=== PATIENT | female | born 1925 | race Caucasian/White ===

== ENCOUNTER 2016-07-19 04:34 | Emergency (ER) | payer MEDICARE, BC ==
[~2016-07-19] VITALS: Ht 154.9 cm; Wt 62.8 kg
[2016-07-19 04:34] VITALS: Ht 154.9 cm; Wt 62.8 kg
[~2016-07-19 04:34] MED LIST: METO-68 PO; TRIA1TAB72 PO; ZOLE5INF IV; [UNRECOGNIZED DRUG - CODE] PO
--- NOTE | 2016-07-19 04:35 | NUR ---
BILAT BP PT BP OBTAINED ON LEFT ARM. STATES SHE IS NOT TO HAVE BP TAKEN ON RIGHT ARM DUE TO PREVIOUS NODE REMOVAL.
--- OUTSIDE RECORDS SUMMARY | 2016-07-19 04:39 | XMS REPORT | Referral Summary ---
Author Author [facility], [facility] Organization [facility] Address Unknown Phone Unavailable Care Team Providers Care Hydraulics Engineer Name Role Phone Augustus Haywood Primary Care Physician [phone] Encounter Date(s): 11/24/14 - 11/24/14 [facility], [address] [place] [address]- Discharge Diagnosis: Hypertension Discharge Diagnosis: Insomnia Discharge Diagnosis: Obstructive sleep apnea, adult Discharge Disposition: 01-Home or Self Care Attending Physician: Paula Haywood DO Admitting Physician: Luz Benjamin APRN Vital Signs Most recent to 1 oldest [Reference Range]: Temperature Tympanic 36.9 degC [36.6-38.1 degC] (11/24/14 9:01 AM) Peripheral Pulse 76 bpm Rate [60-100 bpm] (11/24/14 9:01 AM) Respiratory Rate 16 br/min [14-20 br/min] (11/24/14 9:01 AM) Blood Pressure 150/88 mmHg [90-140/60-90 mmHg] *HI* (11/24/14 9:01 AM) SpO2 96 % (11/24/14 9:01 AM) Problem List Condition Effective Dates Status Health Status Informant Anemia(Confirmed) Active Arthritis(Confirmed) Active Cataracts(Confirmed) Resolved Skin Active Conditions(Confirmed ) Heart Active murmur(Confirmed) Hyperlipidemia(Confi Resolved rmed) Hypertension(Confirm Active ed) IBS(Confirmed) Active Ear Active infection(Confirmed) Insomnia(Confirmed) Active Obstructive sleep Active apnea, adult(Confirmed) Osteopenia(Confirmed Active ) Pneumonia(Confirmed) Resolved Speech Active problem(Confirmed) Tension Resolved headache(Confirmed) Chicken Active pox(Confirmed) Allergies, Adverse Reactions, Alerts Substance Reaction Severity Status clindamycin Active penicillin Unknown Active Medications Caltrate 600 + D 1 tabs, Oral, BID, 0 Refill(s) Start Date: 09/13/14 Status: Ordered Lasix 20 mg oral tablet 20 mg 1 tabs, Oral, Daily, # 90 tabs, 3 Refill(s), Pharmacy: [facility] [id number], 1 tabs Oral Daily Start Date: 11/24/14 Status: Ordered lisinopril 5 mg oral tablet 5 mg 1 tabs, Oral, Daily, # 90 tabs, 3 Refill(s), Pharmacy: [facility] [id number], 1 tabs Oral Daily Start Date: 11/24/14 Status: Ordered lutein Oral, Daily, 0 Refill(s) Start Date: 09/16/13 Status: Ordered Nasonex 50 mcg/inh nasal spray 100 mcg 2 sprays, Nasal, Daily, # 3 Each, 3 Refill(s), Pharmacy: [facility] [id number] Start Date: 08/07/14 Status: Ordered ZyrTEC 10 mg, Oral, Daily, 0 Refill(s) Start Date: 02/06/14 Status: Ordered Results No data available for this section Immunizations Vaccine Date Refusal Reason tetanus/diphth/pertuss (Tdap) adult/adol 12/22/11 influenza virus vaccine, live 11/24/12 influenza virus vaccine, live 12/22/11 pneumococcal 13-valent conjugate vaccine1 08/07/14 pneumococcal 23-polyvalent vaccine 10/18/08 zoster vaccine live 08/24/09 1Result Comment: GIVEN BY Senthil DAVIS RNmachinist general Procedure Date Related Diagnosis Body Site Breast biopsy and related procedures1 1990 Appendectomy2 1972 Hysterectomy3 1973 Tonsillectomy4 1933 Cataract extraction [id number] [id number] Social History Social History Type Response Smoking Status Former smoker; Type: Cigarettes; Number of years: 41 1Quit in 1961 Assessment and Plan Extracted from: Title: Ambulatory Patient Education Author: Paula Haywood DO Date: Behavioral Health Insomnia Insomnia is frequent trouble falling and/or staying asleep. Insomnia can be a jail problem or a short term problem. Both are common. Insomnia can be a short term problem when the wakefulness is related to a certain stress or worry. half-way insomnia is often related to ongoing stress during waking hours and/or poor sleeping habits. Overtime, sleep deprivation itself can make the problem worse. Every little thing feels more severe because you are overtired and your ability to cope is decreased. CAUSES Stress, anxiety, and depression. Poor sleeping habits. Distractions such as TV in the bedroom. Naps close to bedtime. Engaging in emotionally charged conversations before bed. Technical reading before sleep. Alcohol and other sedatives. They may make the problem worse. They can hurt normal sleep patterns and normal dream activity. Stimulants such as caffeine for several hours prior to bedtime. Pain syndromes and shortness of breath can cause insomnia. Exercise late at night. Changing time zones may cause sleeping problems (jet lag). It is sometimes helpful to have someone observe your sleeping patterns. They should look for periods of not breathing during the night (sleep apnea). They should also look to see how long those periods last. If you live alone or observers are uncertain, you can also be observed at a sleep clinic where your sleep patterns will be professionally monitored. Sleep apnea requires a checkup and treatment. Give your caregivers your medical history. Give your caregivers observations your family has made about your sleep. SYMPTOMS Not feeling rested in the morning. Anxiety and restlessness at bedtime. Difficulty falling and staying asleep. TREATMENT Your caregiver may prescribe treatment for an underlying medical disorders. Your caregiver can give advice or help if you are using alcohol or other drugs for self-medication. Treatment of underlying problems will usually eliminate insomnia problems. Medications can be prescribed for short time use. They are generally not recommended for lengthy use. Gxix-tqg-hbiwtqy sleep medicines are not recommended for lengthy use. They can be habit forming. You can promote easier sleeping by making lifestyle changes such as: Using relaxation techniques that help with breathing and reduce muscle tension. Exercising earlier in the day. Changing your diet and the time of your last meal. No night time snacks. Establish a regular time to go to bed. Counseling can help with stressful problems and worry. Soothing music and white noise may be helpful if there are background noises you cannot remove. Stop tedious detailed work at least one hour before bedtime. HOME CARE INSTRUCTIONS Keep a diary. Inform your caregiver about your progress. This includes any medication side effects. See your caregiver regularly. Take note of: Times when you are asleep. Times when you are awake during the night. The quality of your sleep. How you feel the next day. This information will help your caregiver care for you. Get out of bed if you are still awake after 15 minutes. Read or do some quiet activity. Keep the lights down. Wait until you feel sleepy and go back to bed. Keep regular sleeping and waking hours. Avoid naps. Exercise regularly. Avoid distractions at bedtime. Distractions include watching television or engaging in any intense or detailed activity like attempting to balance the household checkbook. Develop a bedtime ritual. Keep a familiar routine of bathing, brushing your teeth, climbing into bed at the same time each night, listening to soothing music. Routines increase the success of falling to sleep faster. Use relaxation techniques. This can be using breathing and muscle tension release routines. It can also include visualizing peaceful scenes. You can also help control troubling or intruding thoughts by keeping your mind occupied with boring or repetitive thoughts like the old concept of counting sheep. You can make it more creative like imagining planting one beautiful flower after another in your backyard garden. During your day, work to eliminate stress. When this is not possible use some of the previous suggestions to help reduce the anxiety that accompanies stressful situations. MAKE SURE YOU: Understand these instructions. Will watch your condition. Will get help right away if you are not doing well or get worse. Document Released: 02/13/2001 Document Revised: 05/10/2012 Document Reviewed: [employer] Patient Information 2015 [employer]. This information is not intended to replace advice given to you by your health care provider. Make sure you discuss any questions you have with your health care provider. No follow up information was provided. Extracted from: Title: Office Visit Note Author: Paula Haywood DO Date: 11/24/14 Assessment/Plan Hypertension stable, continue current medications. Ordered: Office Visit Level 4 Est 72513 Insomnia patient will try melatonin again at a dose around 3-6 mg. Ordered: Office Visit Level 4 Est 02835 Obstructive sleep apnea, adult Ordered: Office Visit Level 4 Est 18676 Orders: furosemide, 20 mg 1 tabs, Oral, Daily, # 90 tabs, 3 Refill(s), Pharmacy: [facility] [id number], 1 tabs Oral Daily lisinopril, 5 mg 1 tabs, Oral, Daily, # 90 tabs, 3 Refill(s), Pharmacy: [facility] 47197, 1 tabs Oral Daily
--- OUTSIDE RECORDS SUMMARY | 2016-07-19 04:39 | XMS REPORT | Referral Summary ---
Author Author [facility] Organization [facility] Address Unknown Phone Unavailable Care Team Providers Care Clinical Laboratory Service Teacher Name Role Phone Carlos Bravo Primary Care Physician [phone] Encounter [facility] [id number] Date(s): 07/31/14 - 07/31/14 [facility] [address] [place], [place] [address] Discharge Diagnosis: Moderate mitral regurgitation Discharge Diagnosis: Hypertension Discharge Diagnosis: Other Nonspecific Abnormal Finding of Lung Field Discharge Diagnosis: Chronic rhinitis Discharge Diagnosis: Pulmonary hypertension Discharge Diagnosis: Diastolic dysfunction Discharge Diagnosis: Cough Discharge Diagnosis: Bradycardia Discharge Disposition: 01-Home or Self Care Attending Physician: Jericho Carrero MD Admitting Physician: Jericho Carrero MD Referring Physician: Jericho Carrero MD Vital Signs Most recent to 1 oldest [Reference Range]: Peripheral Pulse 48 bpm Rate [60-100 bpm] *LOW* (07/31/14 12:40 PM) Respiratory Rate 12 br/min [14-20 br/min] *LOW* (07/31/14 12:40 PM) Blood Pressure 141/78 mmHg [90-140/60-90 mmHg] *HI* (07/31/14 12:40 PM) SpO2 96 % (07/31/14 12:40 PM) Problem List Condition Effective Dates Status Health [...] Daily, # 90 tabs, 3 Refill(s), Pharmacy: [place] [id number], 1 tabs Oral Daily Start Date: 11/24/14 Status: Ordered lisinopril 5 mg oral tablet 5 mg 1 tabs, Oral, Daily, # 90 tabs, 3 Refill(s), [place]: [place] [id number], 1 tabs Oral Daily Start Date: 11/24/14 Status: Ordered lutein Oral, Daily, 0 Refill(s) Start Date: 09/16/13 Status: Ordered Nasonex 50 mcg/inh nasal spray 100 mcg 2 sprays, Nasal, Daily, # 3 Each, 3 Refill(s), [place]: [place] [id number] Start Date: 08/07/14 Status: Ordered ZyrTEC 10 mg, Oral, Daily, 0 Refill(s) Start Date: 02/06/14 Status: Ordered Results No data available for this section Immunizations Vaccine Date Refusal Reason tetanus/diphth/pertuss (Tdap) adult/adol 12/22/11 influenza virus vaccine, live 11/24/12 influenza virus vaccine, live 12/22/11 pneumococcal 13-valent conjugate vaccine1 08/07/14 pneumococcal 23-polyvalent vaccine 10/18/08 zoster vaccine live 08/24/09 1Result Comment: GIVEN BY Senthil DAVIS RNcover stitch machine operator Procedure Date Related Diagnosis Body Site Breast biopsy and related procedures1 1990 Appendectomy2 1972 Hysterectomy3 1972 Tonsillectomy4 193 Cataract extraction 20759 54805 40059 [id number] Social History Social History Type Response Smoking Status Former smoker; Type: Cigarettes; Number of years: 41 1Quit in 1961 Assessment and Plan Extracted from: Title: Office Visit Note Author: Jericho Carrero MD Date: 07/31/14 Assessment/Plan 1.Pulmonary hypertension Group 2 from diastolic dysfunction/moderate to severe mitral regurgitation and group 3 now untreated sleep apnea. Unless other symptoms develop, follow-up echo in 2 years 2.Diastolic dysfunction 3.Moderate mitral regurgitation 4.Bradycardia Cut metoprolol in half 5.Hypertension 6.Cough Likely from the chronic rhinitis 7.Chronic rhinitis Two-week trial on nasal steroid (mometasone). Consider fluticasone if symptoms improve. Other Nonspecific Abnormal Finding of Lung Field No additional follow-up needed on the x-ray findings Orders: XR Chest 2 Views
--- OUTSIDE RECORDS SUMMARY | 2016-07-19 04:39 | XMS REPORT | Referral Summary ---
Author Author [facility] Organization [facility] Address Unknown Phone Unavailable Care Team Providers Care Commercial Intern Name Role Phone Carlos Bravo Primary Care Physician [phone] Encounter Date(s): 03/20/15 - 03/20/15 [facility] [address] [place], [place] [address] Discharge Disposition: 01-Home or Self Care Attending Physician: Titus Storm MD Admitting Physician: Titus Storm MD Vital Signs No data available for this section Problem List Condition Effective Dates Status Health [...] Status clindamycin Active penicillin Unknown Active Medications Lasix 20 mg oral tablet 20 mg 1 tabs, Oral, Daily, # 90 tabs, 3 Refill(s), Pharmacy: [facility] [id number], 1 tabs Oral Daily Start Date: 11/24/14 Status: Ordered losartan 25 mg oral tablet See Instructions, 1 TABS ORAL DAILY, # 30 tabs, 2 Refill(s), eRx: [facility] [id number], 1 TABS ORAL DAILY Start Date: 03/20/15 Status: Ordered lutein Oral, Daily, 0 Refill(s) Start Date: 09/16/13 Status: Ordered Nasonex 50 mcg/inh nasal spray 100 mcg 2 sprays, Nasal, Daily, # 3 Each, 3 Refill(s), Pharmacy: [facility] [id number] Start Date: 08/07/14 Status: Ordered ZyrTEC 10 mg, Oral, Daily, 0 Refill(s) Start Date: 02/06/14 Status: Ordered Results No data available for this section Immunizations Vaccine Date Refusal Reason tetanus/diphth/pertuss (Tdap) adult/adol 12/22/11 influenza virus vaccine, live 11/24/12 influenza virus vaccine, live 12/22/11 pneumococcal 13-valent conjugate vaccine1 08/07/14 pneumococcal 23-polyvalent vaccine 10/18/08 zoster vaccine live 08/24/09 1Result Comment: GIVEN BY Senthil DAVIS RNland reclamation specialist Procedure Date Related Diagnosis Body Site Breast biopsy and related procedures1 1990 Appendectomy2 1972 Hysterectomy3 1972 Tonsillectomy4 1932 Cataract extraction 84946 [id number] 52152 27715 Social History Social History Type Response Smoking Status Former smoker; Type: Cigarettes; Number of years: 41 1Quit in 1961 Assessment and Plan No data available for this section
--- OUTSIDE RECORDS SUMMARY | 2016-07-19 04:39 | XMS REPORT | Referral Summary ---
Author Author [facility], [facility] Organization [facility] Address Unknown Phone Unavailable Care Team Providers Care Electronic Equipment Trades Worker Name Role Phone Carlos Bravo Primary Care Physician [phone] Encounter [facility] Date(s): 08/15/14 - 08/15/14 [facility], [address] [place] [address] Discharge Diagnosis: Anemia Discharge Diagnosis: Bradycardia Discharge Diagnosis: Hypertension Discharge Disposition: 01-Home or Self Care Attending Physician: Luz Benjamin APRN Admitting Physician: Luz Benjamin APRN Vital Signs Most recent to 1 oldest [Reference Range]: Temperature Tympanic 36.8 degC [36.6-38.1 degC] (08/15/14 9:06 AM) Peripheral Pulse 60 bpm Rate [60-100 bpm] (08/15/14 9:06 AM) Respiratory Rate 16 br/min [14-20 br/min] (08/15/14 9:06 AM) Blood Pressure 140/70 mmHg [90-140/60-90 mmHg] (08/15/14 9:06 AM) SpO2 97 % (08/15/14 9:06 AM) Problem List Condition Effective Dates Status [...] Daily, # 90 tabs, 3 Refill(s), Pharmacy: [facility] [id number], 1 tabs Oral Daily Start Date: 11/24/14 Status: Ordered lisinopril 5 mg oral tablet 5 mg 1 tabs, Oral, Daily, # 90 tabs, 3 Refill(s), Pharmacy: [facility] [id number], 1 tabs Oral Daily Start Date: 11/24/14 Status: Ordered lutein Oral, Daily, 0 Refill(s) Start Date: 09/16/13 Status: Ordered Nasonex 50 mcg/inh nasal spray 100 mcg 2 sprays, Nasal, Daily, # 3 Each, 3 Refill(s), Pharmacy: [facility] [address] Start Date: 08/07/14 Status: Ordered ZyrTEC 10 mg, Oral, Daily, 0 Refill(s) Start Date: 02/06/14 Status: Ordered Results Hematology Most recent to 1 oldest [Reference Range]: WBC [4.8-10.8 5.7 10*3/uL 10*3/uL] (08/15/14 9:57 AM) RBC [4.00-5.20 4.04 10*6/uL 10*6/uL] (08/15/14 9:57 AM) Hgb [12.0-16.0 12.8 gm/dL gm/dL] (08/15/14 9:57 AM) Hct [37.0-47.0 %] 39.2 % (08/15/14 9:57 AM) MCV [82.0-99.0 fL] 97.0 fL (08/15/14 9:57 AM) MCH [27.0-32.0 pg] 31.7 pg (08/15/14 9:57 AM) MCHC [32.0-36.0 32.7 gm/dL gm/dL] (08/15/14 9:57 AM) RDW [11.5-14.5 %] 13.0 % (08/15/14 9:57 AM) Platelet [150-400 173 10*3/uL 10*3/uL] (08/15/14 9:57 AM) MPV [8.8-14.8 fL] 11.6 fL (08/15/14 9:57 AM) Immature 0.2 % Granulocytes (08/15/14:57 AM) [0.0-1.0 %] Neutrophils [51-75 62 % %] (08/15/14 9:57 AM) Lymphocytes [20-46 23 % %] (08/15/14 9:57 AM) Monocytes [4-11 %] 11 % (08/15/14 9:57 AM) Eosinophils [0-4 %] 4 % (08/15/14 9:57 AM) Basophils [0-2 %] 1 % (08/15/14 9:57 AM) Neutro Absolute 3.50 10*3 [1.90-7.00 10*3] (08/15/14 9:57 AM) Lymph Absolute 1.28 10*3 [0.80-3.30 10*3] (08/15/14 9:57 AM) [place] Absolute 0.63 10*3 [0.30-1.00 10*3] (08/15/14 9:57 AM) Eos Absolute 0.20 10*3 [0.00-0.50 10*3] (08/15/14 9:57 AM) Baso Absolute 0.05 10*3 [0.00-0.20 10*3] (08/15/14 9:57 AM) Chemistry Most recent to 1 oldest [Reference Range]: Sodium Lvl [135-144 142 mEq/L mEq/L] (08/15/14 9:57 AM) Potassium Lvl 4.3 mEq/L [3.5-5.2 mEq/L] (08/15/14 9:57 AM) Chloride [99-111 105 mEq/L mEq/L] (08/15/14 9:57 AM) CO2 [22-31 mEq/L] 32 mEq/L *HI* (08/15/14 9:57 AM) AGAP [3-20] 5 (08/15/14 9:57 AM) BUN [10-20 mg/dL] 22 mg/dL *HI* (08/15/14 9:57 AM) Glucose Lvl [70-99 96 mg/dL mg/dL] (08/15/14 9:57 AM) Creatinine Lvl 0.72 mg/dL [0.57-1.11 mg/dL] (08/15/14 9:57 AM) eGFR [>60 mL/min] >60 mL/min 1 (08/15/14 9:57 AM) Calcium Lvl 9.4 mg/dL [8.9-10.5 mg/dL] (08/15/14 9:57 AM) TSH [0.35-4.94] 1.59 (08/15/14 9:57 AM) 1Result Comment: Multiply eGFR results by 1.21 for race. Immunizations Vaccine Date Refusal Reason tetanus/diphth/pertuss (Tdap) adult/adol 12/22/11 influenza virus vaccine, live 11/24/12 influenza virus vaccine, live 12/22/11 pneumococcal 13-valent conjugate vaccine1 08/07/14 pneumococcal 23-polyvalent vaccine 10/18/08 zoster vaccine live 08/24/09 1Result Comment: GIVEN BY Senthil DAVIS RNautomatic mounter Procedure Date Related Diagnosis Body Site Breast biopsy and related procedures1 1990 Appendectomy2 1972 Hysterectomy3 1972 Tonsillectomy4 1932 Cataract extraction 97076 07141 [id number] [id number] Social History Social History Type Response Smoking Status Former smoker; Type: Cigarettes; Number of years: 41 1Quit in 1961 Assessment and Plan Extracted from: Title: Ambulatory Patient Education Author: Luz Benjamin APRN Date : 08/15/14 Family Medicine Bradycardia Bradycardia is a term for a heart rate (pulse ) that, in adults, is slower than 60 beats per minute. A normal rate is 60 to 100 beats per minute. A heart rate below 60 beats per minute may be normal for some adults with healthy hearts. If the rate is too slow, the heart may have trouble pumping the volume of blood the body needs. If the heart rate gets too low, blood flow to the brain may be decreased and may make you feel lightheaded, dizzy, or faint. The heart has a natural pacemaker in the top of the heart called the SA node ( sinoatrial or sinus node ). This pacemaker sends out regular electrical signals to the muscle of the heart, telling the heart muscle when to beat (contract ). The electrical signal travels from the upper parts of the heart (atria ) through the AV node (atrioventricular node ), to the lower chambers of the heart (ventricles ). The ventricles squeeze, pumping the blood from your heart to your lungs and to the rest of your body. CAUSES Problem with the heart's electrical system. Problem with the heart's natural pacemaker. Heart disease, damage, or infection. Medications. Problems with minerals and salts (electrolytes ). SYMPTOMS Fainting (syncope ). Fatigue and weakness. Shortness of breath (dyspnea ). Chest pain (angina ). Drowsiness. Confusion. DIAGNOSIS An electrocardiogram (ECG) can help your caregiver determine the type of slow heart rate you have. If the cause is not seen on an ECG, you may need to wear a heart monitor that records your heart rhythm for several hours or days. Blood tests. TREATMENT Electrolyte supplements. Medications. Withholding medication which is causing a slow heart rate. Pacemaker placement. SEEK IMMEDIATE MEDICAL CARE IF: You feel lightheaded or faint. You develop an irregular heart rate. You feel chest pain or have trouble breathing. MAKE SURE YOU: Understand these instructions. Will watch your condition. Will get help right away if you are not doing well or get worse. Document Released: 11/08/2002 Document Revised: 05/10/2012 Document Reviewed: [facility] Patient Information 2014 [employer]. No follow up information was provided. Extracted from: Title: Office Visit Note Author: Luz Benjamin APRN Date: 08/15/14 Assessment/Plan Anemia Bradycardia EKG-macie. Appt with cardiology for further eval. Stop Metoprolol. Discussed BP parameters. Check BP and pulse 3-4 times weekly record and bring readings to appt. Ordered: Basic Metabolic Panel CBC w/ Differential TSH 3rd Generation Hypertension
--- OUTSIDE RECORDS SUMMARY | 2016-07-19 04:39 | XMS REPORT | Referral Summary ---
Author Author [facility] Organization [facility] Address Unknown Phone Unavailable Care Team Providers Care Level Vial Inspector And Tester Name Role Phone Carlos Bravo Primary Care Physician [phone] Encounter [facility] [id number] Date(s): 06/28/14 - 06/28/14 [facility] [address] [place], [place] [address] Discharge Diagnosis: Chest pain Discharge Diagnosis: OTHER DYSPNEA AND RESPIRATORY ABNORMALITY Discharge Diagnosis: Pleural effusion Discharge Diagnosis: Pulmonary hypertension Discharge Disposition: 01-Home or Self Care Attending Physician: Jericho Carrero MD Admitting Physician: Jericho Carrero MD Vital Signs No data available for [...] Daily, # 90 tabs, 3 Refill(s), Pharmacy: [facility] [id number], 1 tabs Oral Daily Start Date: 11/24/14 Status: Ordered lisinopril 5 mg oral tablet 5 mg 1 tabs, Oral, Daily, # 90 tabs, 3 Refill(s), Pharmacy: [facility] [id number], 1 tabs Oral Daily Start Date: 11/24/14 Status: Ordered lutein Oral, Daily, 0 Refill(s) Start Date: 09/16/13 Status: Ordered Nasonex 50 mcg/inh nasal spray 100 mcg 2 sprays, Nasal, Daily, # 3 Each, 3 Refill(s), Pharmacy: [facility] [id number] Start Date: 08/07/14 Status: Ordered ZyrTEC 10 mg, Oral, Daily, 0 Refill(s) Start Date: 02/06/14 Status: Ordered Results No data available for this section Immunizations Vaccine Date Refusal Reason tetanus/diphth/pertuss (Tdap) adult/adol 12/22/11 influenza virus vaccine, live 11/24/12 influenza virus vaccine, live 12/22/11 pneumococcal 13-valent conjugate vaccine1 08/07/14 pneumococcal 23-polyvalent vaccine 10/18/08 zoster vaccine live 08/24/09 1Result Comment: GIVEN BY Senthil DAVIS RNtrack oiler Procedure Date Related Diagnosis Body Site Breast biopsy and related procedures1 1990 Appendectomy2 1972 Hysterectomy3 1973 Tonsillectomy4 193 Cataract extraction 43217 21351 34193 60628 Social History Social History Type Response Smoking Status Former smoker; Type: Cigarettes; Number of years: 41 1Quit in 1962 Assessment and Plan No data available for this section
--- OUTSIDE RECORDS SUMMARY | 2016-07-19 04:39 | XMS REPORT | Referral Summary ---
Author Organization Unknown Address Unknown Phone Unavailable Care Team Providers Care Police Inspector Name Role Phone Carlos Bravo Primary Care Physician [phone] Encounter [facility] [id number] Date(s): 06/28/14 - 06/28/14 [facility] [address] [place], [place] [address] Discharge Diagnosis: Chest pain Discharge Diagnosis: OTHER DYSPNEA AND RESPIRATORY ABNORMALITY Discharge Diagnosis: Pleural effusion Discharge Diagnosis: Pulmonary hypertension Discharge Disposition: Home or Self Care Attending Physician: Jericho Carrero MD Admitting Physician: Jericho Carrero MD Vital Signs No data available for this section Problem List Condition Effective Dates Status Health Status Informant Anemia(Confirmed) Active Arthritis(Confirmed) Active Cataracts(Confirmed) Resolved Skin Active Conditions(Confirmed ) Heart Active murmur(Confirmed) Hyperlipidemia(Confi Resolved rmed) Hypertension(Confirm Active ed) IBS(Confirmed) Active Ear Active infection(Confirmed) Insomnia(Confirmed) Active Osteopenia(Confirmed Active ) Pneumonia(Confirmed) Resolved Speech Active problem(Confirmed) Tension Resolved headache(Confirmed) Chicken Active pox(Confirmed) Allergies, Adverse Reactions, Alerts Substance Reaction Severity Status clindamycin Active penicillin Unknown Active Medications Aleve 220 mg oral tablet 1 tabs, Oral, q12hr, 0 Refill(s) Start Date: 09/13/13 Status: Ordered Lasix 40 mg oral tablet See Instructions, TAKE 1 TABLET BY ORAL ROUTE EVERY DAY, # 90 unknown unit, eRx : [id number], TAKE 1 TABLET BY ORAL ROUTE EVERY DAY Special Instructions: TAKE 1 TABLET BY ORAL ROUTE EVERY DAY Start Date: 06/21/14 Status: Ordered lutein Oral, Daily, 0 Refill(s) Start Date: 09/16/13 Status: Ordered Metoprolol Tartrate 50 mg oral tablet 1 tabs, Oral, Daily, # 90 tabs, 2 Refill(s), Pharmacy: [facility] [id number], 1 tabs Oral Daily Start Date: 04/03/14 Status: Ordered ZyrTEC 10 mg, Oral, Daily, 0 Refill(s) Start Date: 02/06/14 Status: Ordered Results No data available for this section Immunizations Vaccine Date Refusal Reason tetanus/diphth/pertuss (Tdap) adult/adol 12/22/11 influenza virus vaccine, live 11/24/12 influenza virus vaccine, live 12/22/11 pneumococcal 23-polyvalent vaccine 10/18/08 zoster vaccine live 08/24/09 Procedures Procedure Date Related Diagnosis Body Site Breast biopsy and related procedures1 1990 Appendectomy2 1973 Hysterectomy3 1973 Tonsillectomy4 193 Cataract extraction [id number] Social History Social History Type Response Smoking Status Former smoker; Type: Cigarettes; Number of years: 41 1Quit in 1961 Assessment and Plan Future Scheduled TestsReferral* Return to Clinic 11/15/13 1:05 PM Referrals to Other Providers Referred by: Loretta Carrero MD
--- OUTSIDE RECORDS SUMMARY | 2016-07-19 04:39 | XMS REPORT | Referral Summary ---
Author Author [facility] Organization [facility] Address Unknown Phone Unavailable Care Team Providers Care Staging Technician Name Role Phone Carlos Bravo Primary Care Physician [phone] Encounter [facility] Date(s): 02/20/15 - 02/20/15 [facility] [place] [address] [place] [address] [place] [id number] Discharge Disposition: 01-Home or Self Care Attending Physician: Rhonda Bravo MD Admitting Physician: Rhonda Bravo MD Vital Signs Most recent to 1 oldest [Reference Range]: Temperature Tympanic 36.4 degC [36.6-38.1 degC] *LOW* (02/20/15 11:51 AM) Peripheral Pulse 68 bpm Rate [60-100 bpm] (02/20/15 11:51 AM) Blood Pressure 152/82 mmHg [90-140/60-90 mmHg] *HI* (02/20/15 11:51 AM) Problem List Condition Effective Dates Status [...] Daily, # 90 tabs, 3 Refill(s), Pharmacy: [id number], 1 tabs Oral Daily Start Date: 11/24/14 Status: Ordered lisinopril 5 mg oral tablet 5 mg 1 tabs, Oral, Daily, # 90 tabs, 3 Refill(s), Pharmacy: [facility], 1 tabs Oral Daily Start Date: 11/24/14 Status: Ordered lutein Oral, Daily, 0 Refill(s) Start Date: 09/16/13 Status: Ordered Nasonex 50 mcg/inh nasal spray 100 mcg 2 sprays, Nasal, Daily, # 3 Each, 3 Refill(s), Pharmacy: [facility] [id number] Start Date: 08/07/14 Status: Ordered ZyrTEC 10 mg, Oral, Daily, 0 Refill(s) Start Date: 02/06/14 Status: Ordered Results No data available for this section Immunizations Vaccine Date Refusal Reason tetanus/diphth/pertuss (Tdap) adult/adol 12/22/11 influenza virus vaccine, live 11/24/12 influenza virus vaccine, live 12/22/11 pneumococcal 13-valent conjugate vaccine1 08/07/14 pneumococcal 23-polyvalent vaccine 10/18/08 zoster vaccine live 08/24/09 1Result Comment: GIVEN BY Senthil DAVIS RNgrain drier operator Procedure Date Related Diagnosis Body Site Breast biopsy and related procedures1 1990 Appendectomy2 1972 Hysterectomy3 1973 Tonsillectomy4 193 Cataract extraction 44572 [id number] [id number] Social History Social History Type Response Smoking Status Former smoker; Type: Cigarettes; Number of years: 41 1Quit in 1961 Assessment and Plan Extracted from: Title: Reclast/zoledronic acid 2nd Author: Ashli Brown RN Date: year given Pt here for zoledronic acid/Reclast infusion. See IV notes for specifics. Pt advised to drink adequate water the next 24 hrours. Pt tolerated infusion well. Left ambulatory without difficulty. Pt to have DEXA in 2015.
--- OUTSIDE RECORDS SUMMARY | 2016-07-19 04:39 | XMS REPORT | Referral Summary ---
Author Author [facility] Organization [facility] Address Unknown Phone Unavailable Care Team Providers Care Electrical Transmission Engineer Name Role Phone Carlos Bravo Primary Care Physician [phone] Encounter [facility] Date(s): 08/25/14 - 08/25/14 [facility] [place], [address] [place] [address] Discharge Diagnosis: HTN (hypertension) Discharge Disposition: 01-Home or Self Care Attending Physician: Luz Benjamin APRN Admitting Physician: Luz Benjamin APRN Vital Signs Most recent to 1 oldest [Reference Range]: Temperature Tympanic 36.7 degC [36.6-38.1 degC] (08/25/14 9:23 AM) Peripheral Pulse 80 bpm Rate [60-100 bpm] (08/25/14 9:23 AM) Respiratory Rate 17 br/min [14-20 br/min] (08/25/14 9:23 AM) Blood Pressure 134/72 mmHg [90-140/60-90 mmHg] (08/25/14 9:23 AM) Problem List Condition Effective Dates Status [...] Daily, # 90 tabs, 3 Refill(s), Pharmacy: [facility] 45036, 1 tabs Oral Daily Start Date: 11/24/14 Status: Ordered lisinopril 5 mg oral tablet 5 mg 1 tabs, Oral, Daily, # 90 tabs, 3 Refill(s), Pharmacy: [facility] [id number], 1 tabs Oral Daily Start Date: 11/24/14 Status: Ordered lutein Oral, Daily, 0 Refill(s) Start Date: 09/16/13 Status: Ordered Nasonex 50 mcg/inh nasal spray 100 mcg 2 sprays, Nasal, Daily, # 3 Each, 3 Refill(s), Pharmacy: [facility] [id number] Start Date: 08/07/14 Status: Ordered ZyrTEC 10 mg, Oral, Daily, 0 Refill(s) Start Date: 02/06/14 Status: Ordered Results Chemistry Most recent to 1 oldest [Reference Range]: Sodium Lvl [135-144 142 mEq/L mEq/L] (08/25/14 9:45 AM) Potassium Lvl 4.7 mEq/L [3.5-5.2 mEq/L] (08/25/14 9:45 AM) Chloride [99-111 102 mEq/L mEq/L] (08/25/14 9:45 AM) CO2 [22-31 mEq/L] 31 mEq/L (08/25/14 9:45 AM) AGAP [3-20] 9 (08/25/14 9:45 AM) BUN [10-20 mg/dL] 20 mg/dL (08/25/14 9:45 AM) Glucose Lvl [70-99 93 mg/dL mg/dL] (08/25/14 9:45 AM) Creatinine Lvl 0.83 mg/dL [0.57-1.11 mg/dL] (08/25/14 9:45 AM) eGFR [>60 mL/min] >60 mL/min 1 (08/25/14 9:45 AM) Calcium Lvl 9.5 mg/dL [8.9-10.5 mg/dL] (08/25/14 9:45 AM) 1Result Comment: Multiply eGFR results by 1.21 for race. Immunizations Vaccine Date Refusal Reason tetanus/diphth/pertuss (Tdap) adult/adol 12/22/11 influenza virus vaccine, live 11/24/12 influenza virus vaccine, live 12/22/11 pneumococcal 13-valent conjugate vaccine1 08/07/14 pneumococcal 23-polyvalent vaccine 10/18/08 zoster vaccine live 08/24/09 1Result Comment: GIVEN BY Senthil DAVIS RNphotographer news Procedure Date Related Diagnosis Body Site Breast biopsy and related procedures1 1990 Appendectomy2 1972 Hysterectomy3 1972 Tonsillectomy4 1932 Cataract extraction 94755 [id number] Social History Social History Type Response Smoking Status Former smoker; Type: Cigarettes; Number of years: 41 1Quit in 1961 Assessment and Plan Extracted from: Title: Ambulatory Patient Education Author: Luz Benjamin APRN Date : 08/25/14 Family Medicine Hypertension Hypertension is another name for high blood pressure. High blood pressure may mean that your heart needs to work harder to pump blood. Blood pressure consists of two numbers, which includes a higher number over a lower number ( example: 110/72). HOME CARE Make lifestyle changes as told by your doctor. This may include weight loss and exercise. Take your blood pressure medicine every day. Limit how much salt you use. Stop smoking if you smoke. Do not use drugs. Talk to your doctor if you are using decongestants or control pills. These medicines might make blood pressure higher. Females should not drink more than 1 alcoholic drink per day. Males should not drink more than 2 alcoholic drinks per day. See your doctor as told. GET HELP RIGHT AWAY IF: You have a blood pressure reading with a top number of 180 or higher. You get a very bad headache. You get blurred or changing vision. You feel confused. You feel weak, numb, or faint. You get chest or belly (abdominal ) pain. You throw up (vomit ). You cannot breathe very well. MAKE SURE YOU: Understand these instructions. Will watch your condition. Will get help right away if you are not doing well or get worse. Document Released: 08/04/2008 Document Revised: 05/10/2012 Document Reviewed: [employer] Patient Information 2014 [employer]. No follow up information was provided. Extracted from: Title: Office Visit Note Author: Luz Benjamin APRN Date: 08/25/14 Assessment/Plan HTN (hypertension) cont with addition of lisinopril. recheck in 2-3 months. lab work today. Ordered: Basic Metabolic Panel
--- OUTSIDE RECORDS SUMMARY | 2016-07-19 04:39 | XMS REPORT | Referral Summary ---
Author Author [facility] Address Unknown Phone Unavailable Care Team Providers Care Senior Analytic Consultant Name Role Phone aCrlos Bravo Primary Care Physician [phone] Encounter [facility] Date(s): 07/27/14 - 07/27/14 [facility] [address] [address] Discharge Diagnosis: Obstructive sleep apnea, adult Discharge Disposition: 01-Home or Self Care Attending Physician: Edwardo Barnes MD Admitting Physician: Edwardo Barnes MD Vital Signs Most recent to 1 oldest [Reference Range]: Peripheral Pulse 47 bpm Rate [60-100 bpm] *LOW* (07/27/14 1:03 PM) Blood Pressure 140/80 mmHg [90-140/60-90 mmHg] (07/27/14 1:03 PM) SpO2 95 % (07/27/14 1:03 PM) Problem List Condition Effective Dates Status [...] Daily, # 90 tabs, 3 Refill(s), Pharmacy: [id number], 1 tabs Oral Daily Start Date: 11/24/14 Status: Ordered lisinopril 5 mg oral tablet 5 mg 1 tabs, Oral, Daily, # 90 tabs, 3 Refill(s), Pharmacy: [facility] [address], 1 tabs Oral Daily Start Date: 11/24/14 Status: Ordered lutein Oral, Daily, 0 Refill(s) Start Date: 09/16/13 Status: Ordered Nasonex 50 mcg/inh nasal spray 100 mcg 2 sprays, Nasal, Daily, # 3 Each, 3 Refill(s), Pharmacy: [facility] [address] Start Date: 08/07/14 Status: Ordered ZyrTEC 10 mg, Oral, Daily, 0 Refill(s) Start Date: 02/06/14 Status: Ordered Results No data available for this section Immunizations Vaccine Date Refusal Reason tetanus/diphth/pertuss (Tdap) adult/adol 12/22/11 influenza virus vaccine, live 11/24/12 influenza virus vaccine, live 12/22/11 pneumococcal 13-valent conjugate vaccine1 08/07/14 pneumococcal 23-polyvalent vaccine 10/18/08 zoster vaccine live 08/24/09 1Result Comment: GIVEN BY Senthil DAVIS RNexcel specialist Procedure Date Related Diagnosis Body Site Breast biopsy and related procedures1 1990 Appendectomy2 1972 Hysterectomy3 1972 Tonsillectomy4 193 Cataract extraction 05494 44369 [id number] Social History Social History Type Response Smoking Status Former smoker; Type: Cigarettes; Number of years: 41 1Quit in 1961 Assessment and Plan Extracted from: Title: CPAP donated S9 AutoSet/H5i Author: Cielo Christianson RRT Date: 07/27/14 Patient donated her cpap and humidifier today. She no longer needs to use cpap per Dr Barnes. Extracted from: Title: Office Visit Note Author: Edwardo Barnes MD Date: 07/27/14 Assessment/Plan Obstructive sleep apnea, adult Impression: Moderate obstructive sleep apnea syndrome, intolerance to CPAP. The patient does not have a significant degree of desaturation that demands intervention. Plan: I again told her that from my standpoint it would be okay to discontinue the machine. She needs to avoid situations where drowsiness may be hazardous, such as driving, and she has been doing that. I brought up the possibility of donating her machine to [facility], and she agrees to do so. No return visit is scheduled.
--- OUTSIDE RECORDS SUMMARY | 2016-07-19 04:39 | XMS REPORT | Referral Summary ---
Author Author [facility] Organization [facility] Address Unknown Phone Unavailable Care Team Providers Care Pt Escort Name Role Phone Carlos Bravo Primary Care Physician [phone] Encounter [facility] Date(s): 09/13/14 - 09/13/14 [facility] [place] [address] [place] [address] [place] [address] Discharge Diagnosis: Apnea, sleep Discharge Diagnosis: Mitral insufficiency Discharge Diagnosis: Hypertension, essential Discharge Diagnosis: Aortic stenosis Discharge Disposition: 01-Home or Self Care Attending Physician: Titus Storm MD Admitting Physician: Titus Storm MD Referring Physician: Rhonda Bravo MD Vital Signs Most recent to 1 oldest [Reference Range]: Peripheral Pulse 80 bpm Rate [60-100 bpm] (09/13/14 11:49 AM) Blood Pressure 132/82 mmHg [90-140/60-90 mmHg] (09/13/14 11:49 AM) Problem List Condition Effective Dates Status [...] Daily, # 90 tabs, 3 Refill(s), Pharmacy: [facility] [id number], 1 tabs Oral Daily Start Date: 11/24/14 Status: Ordered losartan 25 mg oral tablet See Instructions, 1 TABS ORAL DAILY, # 30 tabs, 2 Refill(s), eRx: [facility] [id number], 1 TABS ORAL DAILY Start Date: 03/20/15 Status: Ordered lutein Oral, Daily, 0 Refill(s) Start Date: 09/16/13 Status: Ordered Nasonex 50 mcg/inh nasal spray 100 mcg 2 sprays, Nasal, Daily, # 3 Each, 3 Refill(s), Pharmacy: [facility] [address] Start Date: 08/07/14 Status: Ordered ZyrTEC 10 mg, Oral, Daily, 0 Refill(s) Start Date: 02/06/14 Status: Ordered Results No data available for this section Immunizations Vaccine Date Refusal Reason tetanus/diphth/pertuss (Tdap) adult/adol 12/22/11 influenza virus vaccine, live 11/24/12 influenza virus vaccine, live 12/22/11 pneumococcal 13-valent conjugate vaccine1 08/07/14 pneumococcal 23-polyvalent vaccine 10/18/08 zoster vaccine live 08/24/09 1Result Comment: GIVEN BY Senthil DAVIS RNretail field supervisor Procedure Date Related Diagnosis Body Site Breast biopsy and related procedures1 1990 Appendectomy2 1973 Hysterectomy3 1973 Tonsillectomy4 193 Cataract extraction 34851 06708 36044 79309 Social History Social History Type Response Smoking Status Former smoker; Type: Cigarettes; Number of years: 41 1Quit in 1961 Assessment and Plan No data available for this section
--- OUTSIDE RECORDS SUMMARY | 2016-07-19 04:39 | XMS REPORT | Referral Summary ---
Author Author [facility] Organization [facility] Address Unknown Phone Unavailable Care Team Providers Care Workforce Manager Name Role Phone Carlos Bravo Primary Care Physician [phone] Encounter [facility] Date(s): 08/18/14 - 08/18/14 [facility] [place], [address] [place] [address] Discharge Diagnosis: Hypertension Discharge Diagnosis: Bradycardia Discharge Disposition: 01-Home or Self Care Attending Physician: Luz Benjamin APRN Admitting Physician: Luz Benjamin APRN Vital Signs Most recent to 1 oldest [Reference Range]: Temperature Tympanic 36.7 degC [36.6-38.1 degC] (08/18/14 11:01 AM) Peripheral Pulse 80 bpm Rate [60-100 bpm] (08/18/14 11:01 AM) Respiratory Rate 17 br/min [14-20 br/min] (08/18/14 11:01 AM) Blood Pressure 140/88 mmHg [90-140/60-90 mmHg] (08/18/14 11:01 AM) Problem List Condition Effective Dates Status [...] Daily, # 90 tabs, 3 Refill(s), Pharmacy: [facility] [id number], 1 tabs Oral Daily Start Date: 11/24/14 Status: Ordered lisinopril 5 mg oral tablet 5 mg 1 tabs, Oral, Daily, # 90 tabs, 3 Refill(s), Pharmacy: [facility] 36722, 1 tabs Oral Daily Start Date: 11/24/14 Status: Ordered lutein Oral, Daily, 0 Refill(s) Start Date: 09/16/13 Status: Ordered Nasonex 50 mcg/inh nasal spray 100 mcg 2 sprays, Nasal, Daily, # 3 Each, 3 Refill(s), Pharmacy: [facility] [address] Start Date: 08/07/14 Status: Ordered ZyrTEC 10 mg, Oral, Daily, 0 Refill(s) Start Date: 02/06/14 Status: Ordered Results No data available for this section Immunizations Vaccine Date Refusal Reason tetanus/diphth/pertuss (Tdap) adult/adol 12/22/11 influenza virus vaccine, live 11/24/12 influenza virus vaccine, live 12/22/11 pneumococcal 13-valent conjugate vaccine1 08/07/14 pneumococcal 23-polyvalent vaccine 10/18/08 zoster vaccine live 08/24/09 1Result Comment: GIVEN BY Senthil DAVIS RNdelicate fabrics presser Procedure Date Related Diagnosis Body Site Breast biopsy and related procedures1 1990 Appendectomy2 1973 Hysterectomy3 1973 Tonsillectomy4 193 Cataract extraction 45271 03188 21175 49503 Social History Social History Type Response Smoking Status Former smoker; Type: Cigarettes; Number of years: 41 1Quit in 1961 Assessment and Plan Extracted from: Title: Ambulatory Patient Education Author: Luz Benjamin APRN Date : 08/18/14 Family Medicine Bradycardia Bradycardia is a term [...] Released: 11/08/2002 Document Revised: 05/10/2012 Document Reviewed: [facility] Patient Information 2014 [facility]. No follow up information was provided. Extracted from: Title: Office Visit Note Author: Luz Benjamin APRN Date: 08/18/14 Assessment/Plan 1.Hypertension add lisinopril 5mg daily. RTC in 1 week for a recheck. Check bp 3-4 times weekly and prn. Bring BP cuff to next appt. Bradycardia resolved. Orders: lisinopril, See Instructions, 1 TABS ORAL DAILY, # 30 tabs, eRx: [facility] [id number], 1 TABS ORAL DAILY
[2016-07-19] MEDS ORDERED: NORMAL SALINE 1,000 ML IV ONE (04:40)
--- OUTSIDE RECORDS SUMMARY | 2016-07-19 04:40 | XMS REPORT | Continuity of Care Document ---
Author Author [facility] Organization [facility] Address Unknown Phone Unavailable Allergies Medications Problems Procedures Results Encounters ACCT No. Visit Date/Time Discharge Status Pt. Type Provider Facility Loc./Unit Complaint [id number] 04/19/2013 12:58:00 04/19/2013 23 :59:59 CLS Outpatient
--- OUTSIDE RECORDS SUMMARY | 2016-07-19 04:40 | XMS REPORT | Referral Summary ---
Author Author [facility] [place] Organization [facility] [place] Address Unknown Phone Unavailable Care Team Providers Care Public Health Physician Name Role Phone Carlos Bravo Primary Care Physician [phone] Encounter [facility] Date(s): 03/24/16 - 03/24/16 [facility] [place] [address] [place], [place] [address] Discharge Diagnosis: Mitral prolapse Discharge Diagnosis: Mitral insufficiency Discharge Diagnosis: Fall Discharge Disposition: 01-Home or Self Care Attending Physician: Titus Storm MD Admitting Physician: Titus Storm MD Vital Signs Most recent to 1 oldest [Reference Range]: Peripheral Pulse 66 bpm Rate [60-100 bpm] (03/24/16 12:45 PM) Blood Pressure 122/80 mmHg [90-140/60-90 mmHg] (03/24/16 12:45 PM) Problem List Condition Effective Dates Status Health Status Informant Anemia(Confirmed) Active Arthritis(Confirmed) Active Cataracts(Confirmed) Resolved Skin Active Conditions(Confirmed ) Fall(Confirmed) Active Heart Active murmur(Confirmed) Hyperlipidemia(Confi Resolved rmed) Hypertension(Confirm Active ed) IBS(Confirmed) Active Ear Active infection(Confirmed) Insomnia(Confirmed) Active Mitral Active insufficiency(Confir med) Mitral Active prolapse(Confirmed) Obstructive sleep Active apnea, adult(Confirmed) Osteopenia(Confirmed Active ) Pneumonia(Confirmed) Resolved Speech Active problem(Confirmed) Tension Resolved headache(Confirmed) Chicken Active pox(Confirmed) Allergies, Adverse Reactions, Alerts Substance Reaction Severity Status clindamycin Active HYDROcodone Nausea Active penicillin Unknown Active Medications amcinonide 0.1% topical cream 1 keira, Topical, BID, itchy spot, # 15 g, 0 Refill(s), Pharmacy: [facility] [id number] Start Date: 12/07/15 Status: Ordered clobetasol 0.05% topical cream See Instructions, apply to itchy spots of areas of scalp, # 15 g, 0 Refill(s), [facility] Start Date: 12/08/15 Status: Ordered Lasix 20 mg oral tablet See Instructions, 1 tabs Oral every other day, # 30 Each, 0 Refill(s), Pharmacy : [facility], 1 tabs Oral every other day Start Date: 02/01/16 Status: Ordered losartan 25 mg oral tablet See Instructions, TAKE 1 TABLET BY MOUTH DAILY, # 30 Each, 7 Refill(s), [facility], TAKE 1 TABLET BY MOUTH DAILY Start Date: 02/14/16 Status: Ordered lutein Oral, Daily, 0 Refill(s) Start Date: 09/16/13 Status: Ordered Nasonex 50 mcg/inh nasal spray 100 mcg 2 sprays, Nasal, Daily, # 3 Each, 3 Refill(s), [facility] Start Date: 08/07/14 Status: Ordered ZyrTEC 10 mg, Oral, Daily, 0 Refill(s) Start Date: 02/06/14 Status: Ordered Results No data available for this section Immunizations Given and Recorded Vaccine Date Status Refusal Reason tetanus/diphth/pertuss (Tdap) adult/adol 12/22/11 Recorded influenza virus vaccine, live 11/24/12 Given influenza virus vaccine, live 12/22/11 Given pneumococcal 13-valent conjugate vaccine1 08/07/14 Given pneumococcal 23-polyvalent vaccine 10/18/08 Recorded zoster vaccine live 08/24/09 Recorded 1Result Comment: GIVEN BY Senthil DAVIS RNjewelry engraver Procedure Date Related Diagnosis Body Site Breast biopsy and related procedures1 1990 Appendectomy2 1972 Hysterectomy3 1972 Tonsillectomy4 193 Cataract extraction 65571 54023 [id number] 51193 Social History Social History Type Response Smoking Status Former smoker; Type: Cigarettes; Number of years: 41 1Quit in 1961 Assessment and Plan Extracted from: Title: Office Visit Note Author: Titus Storm MD Date: 03/24/16 Assessment/Plan 1.Mitral prolapse 2.Mitral insufficiency 3.Fall Discussion: I advised the patient that she seems to be doing great 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 She is comfortable with this plan. We also advised her aboutthe risk of falling.
--- OUTSIDE RECORDS SUMMARY | 2016-07-19 04:40 | XMS REPORT | Referral Summary ---
Author Author [facility] Organization [facility] Address Unknown Phone Unavailable Care Team Providers Care Micrographics Services Supervisor Name Role Phone Carlos Bravo Primary Care Physician [phone] Encounter [facility] Date(s): 07/27/14 - 07/27/14 [facility] [place] [address] [address] Discharge Diagnosis: Obstructive sleep apnea, adult [...] Daily, # 90 tabs, 3 Refill(s), Pharmacy: [facility] [id number], 1 tabs Oral Daily Start Date: 11/24/14 Status: Ordered lisinopril 5 mg oral tablet 5 mg 1 tabs, Oral, Daily, # 90 tabs, 3 Refill(s), Pharmacy: [facility] 61819, 1 tabs Oral Daily Start Date: 11/24/14 Status: Ordered lutein Oral, Daily, 0 Refill(s) Start Date: 09/16/13 Status: Ordered Nasonex 50 mcg/inh nasal spray 100 mcg 2 sprays, Nasal, Daily, # 3 Each, 3 Refill(s), Pharmacy: [facility] [address]24 Start Date: 08/07/14 Status: Ordered ZyrTEC 10 mg, Oral, Daily, 0 Refill(s) Start Date: 02/06/14 Status: Ordered Results No data available for this section Immunizations Vaccine Date Refusal Reason tetanus/diphth/pertuss (Tdap) adult/adol 12/22/11 influenza virus vaccine, live 11/24/12 influenza virus vaccine, live 12/22/11 pneumococcal 13-valent conjugate vaccine1 08/07/14 pneumococcal 23-polyvalent vaccine 10/18/08 zoster vaccine live 08/24/09 1Result Comment: GIVEN BY Senthil DAVIS RNx ray developing machine operator Procedure Date Related Diagnosis Body Site Breast biopsy and related procedures1 1990 Appendectomy2 1972 Hysterectomy3 1972 Tonsillectomy4 193 Cataract extraction 15787 [id number] Social History Social History Type Response Smoking [...]
--- OUTSIDE RECORDS SUMMARY | 2016-07-19 04:40 | XMS REPORT | Referral Summary ---
Author Author [facility] Organization [facility] Address Unknown Phone Unavailable Care Team Providers Care Strategic Account Executive Name Role Phone Carlos Bravo Primary Care Physician [phone] Encounter [facility] Date(s): 07/27/14 - 07/27/14 [facility] [place] [address] [address] Discharge Diagnosis: Obstructive sleep apnea, adult Discharge [...] Daily, # 90 tabs, 3 Refill(s), Pharmacy: [facility] [id number], 1 tabs Oral Daily Start Date: 11/24/14 Status: Ordered lisinopril 5 mg oral tablet 5 mg 1 tabs, Oral, Daily, # 90 tabs, 3 Refill(s), Pharmacy: [facility] 62979, 1 tabs Oral Daily Start Date: 11/24/14 Status: Ordered lutein Oral, Daily, 0 Refill(s) Start Date: 09/16/13 Status: Ordered Nasonex 50 mcg/inh nasal spray 100 mcg 2 sprays, Nasal, Daily, # 3 Each, 3 Refill(s), Pharmacy: [facility] [address] Start Date: 08/07/14 Status: Ordered ZyrTEC 10 mg, Oral, Daily, 0 Refill(s) Start Date: 02/06/14 Status: Ordered Results No data available for this section Immunizations Vaccine Date Refusal Reason tetanus/diphth/pertuss (Tdap) adult/adol 12/22/11 influenza virus vaccine, live 11/24/12 influenza virus vaccine, live 12/22/11 pneumococcal 13-valent conjugate vaccine1 08/07/14 pneumococcal 23-polyvalent vaccine 10/18/08 zoster vaccine live 08/24/09 1Result Comment: GIVEN BY Senthil DAVIS RNmeasurement coordinator Procedure Date Related Diagnosis Body Site Breast biopsy and related procedures1 1990 Appendectomy2 1972 Hysterectomy3 1972 Tonsillectomy4 1932 Cataract extraction 73489 77138 [id number] Social History Social History Type Response Smoking [...] do so. No return visit is scheduled. Extracted from: Title: CPAP donated S9 AutoSet/H5i Author: Cielo Christianson MAMMAL CONTROL AGENT Date: 07/27/14 Patient donated her cpap and humidifier today. She no longer needs to use cpap per Dr Barnes.
--- OUTSIDE RECORDS SUMMARY | 2016-07-19 04:40 | XMS REPORT | Referral Summary ---
Author Author [facility] Organization [facility] Address Unknown Phone Unavailable Care Team Providers Care Inspector Tubes Name Role Phone Carlos Bravo Primary Care Physician [phone] Encounter [facility] [id number] Date(s): 03/20/15 - 03/20/15 [facility] [place] [address] [place], [place] [address] Discharge Diagnosis: Insomnia Discharge Diagnosis: Cough Discharge Diagnosis: Mitral insufficiency Discharge Diagnosis: Essential hypertension Discharge Disposition: 01-Home or Self Care Attending Physician: Titus Storm MD Admitting Physician: Titus Storm MD Referring Physician: Rhonda Bravo MD Vital Signs Most recent to 1 oldest [Reference Range]: Peripheral Pulse 64 bpm Rate [60-100 bpm] (03/20/15 11:21 AM) Blood Pressure 130/80 mmHg [90-140/60-90 mmHg] (03/20/15 11:21 AM) Problem List Condition Effective Dates Status [...] Daily, # 90 tabs, 3 Refill(s), Pharmacy: [facility] 28[facility], 1 tabs Oral Daily Start Date: 11/24/14 Status: Ordered losartan 25 mg oral tablet See Instructions, 1 TABS ORAL DAILY, # 30 tabs, 2 Refill(s), eRx: [facility] [id number], 1 TABS ORAL DAILY Start Date: 03/20/15 Status: Ordered lutein Oral, Daily, 0 Refill(s) Start Date: 09/16/13 Status: Ordered Nasonex 50 mcg/inh nasal spray 100 mcg 2 sprays, Nasal, Daily, # 3 Each, 3 Refill(s), Pharmacy: [facility] 86137 Start Date: 08/07/14 Status: Ordered ZyrTEC 10 mg, Oral, Daily, 0 Refill(s) Start Date: 02/06/14 Status: Ordered Results No data available for this section Immunizations Vaccine Date Refusal Reason tetanus/diphth/pertuss (Tdap) adult/adol 12/22/11 influenza virus vaccine, live 11/24/12 influenza virus vaccine, live 12/22/11 pneumococcal 13-valent conjugate vaccine1 08/07/14 pneumococcal 23-polyvalent vaccine 10/18/08 zoster vaccine live 08/24/09 1Result Comment: GIVEN BY Senthil DAVIS RNdairy manufacturing technologist Procedure Date Related Diagnosis Body Site Breast biopsy and related procedures1 1990 Appendectomy2 1972 Hysterectomy3 1973 Tonsillectomy4 193 Cataract extraction 44461 [id number] [phone] Social History Social History Type Response Smoking Status Former smoker; Type: Cigarettes; Number of years: 41 1Quit in 1961 Assessment and Plan Extracted from: Title: Office Visit Note Author: Titus Storm MD Date: 03/20/15 Assessment/Plan 1.Cough Ordered: Return to Clinic 2.Mitral insufficiency Ordered: Return to Clinic 3.Essential hypertension Ordered: Return to Clinic 4.Insomnia Discussion: We reviewed her echo findings. Her mitral valve certainly doesn' t appear to be any worse and may belessworrisome than previously noted. She certainly does have a very eccentric jet of mitral insufficiency. The aortic valve pathology does not appear severe. Fromthe standpoint of her heart, I think it is okay to sit tight and see again in 1 year. Her cough is probably induced by DORY inhibitor so we discontinued the lisinopril and started losartan, 25 mg daily. Orders: losartan, See Instructions, 1 TABS ORAL DAILY, # 30 tabs, 2 Refill(s) , eRx: [facility] [id number], 1 TABS ORAL DAILY Referrals to Other Providers Referred by: Titus Storm MD
--- OUTSIDE RECORDS SUMMARY | 2016-07-19 04:40 | XMS REPORT | Referral Summary ---
Author Author [facility] [place] Organization [facility] Address Unknown Phone Unavailable Care Team Providers Care Coremaker Supervisor Name Role Phone Carlos Bravo Primary Care Physician [phone] Encounter [facility] Date(s): 08/07/14 - 08/07/14 [facility] [place], [address] [place] [id number] Discharge Diagnosis: Mitral regurgitation Discharge Diagnosis: Neck pain Discharge Diagnosis: Leg pain Discharge Diagnosis: Immunization due Discharge Disposition: 01-Home or Self Care Attending Physician: Rhonda Bravo MD Admitting Physician: Rhonda Bravo MD Vital Signs Most recent to 1 oldest [Reference Range]: Peripheral Pulse 64 bpm Rate [60-100 bpm] (08/07/14 8:47 AM) Respiratory Rate 16 br/min [14-20 br/min] (08/07/14 8:47 AM) Blood Pressure 158/80 mmHg [90-140/60-90 mmHg] *HI* (08/07/14 8:47 AM) Problem List Condition Effective Dates Status [...] Daily, # 90 tabs, 3 Refill(s), Pharmacy: [facility] 360[facility], 1 tabs Oral Daily Start Date: 11/24/14 Status: Ordered lisinopril 5 mg oral tablet 5 mg 1 tabs, Oral, Daily, # 90 tabs, 3 Refill(s), Pharmacy: [facility] [address], 1 tabs Oral Daily Start Date: 11/24/14 Status: Ordered lutein Oral, Daily, 0 Refill(s) Start Date: 09/16/13 Status: Ordered Nasonex 50 mcg/inh nasal spray 100 mcg 2 sprays, Nasal, Daily, # 3 Each, 3 Refill(s), Pharmacy: [facility] [address]189 Start Date: 08/07/14 Status: Ordered ZyrTEC 10 mg, Oral, Daily, 0 Refill(s) Start Date: 02/06/14 Status: Ordered Results No data available for this section Immunizations Vaccine Date Refusal Reason tetanus/diphth/pertuss (Tdap) adult/adol 12/22/11 influenza virus vaccine, live 11/24/12 influenza virus vaccine, live 12/22/11 pneumococcal 13-valent conjugate vaccine1 08/07/14 pneumococcal 23-polyvalent vaccine 10/18/08 zoster vaccine live 08/24/09 1Result Comment: GIVEN BY Senthil DAVIS RNimport/export specialist Procedure Date Related Diagnosis Body Site Breast biopsy and related procedures1 1990 Appendectomy2 1972 Hysterectomy3 1972 Tonsillectomy4 1932 Cataract extraction 10778 10384 [phone] Social History Social History Type Response Smoking Status Former smoker; Type: Cigarettes; Number of years: 41 1Quit in 1961 Assessment and Plan Extracted from: Title: Ambulatory Patient Education Author: Rhonda Bravo MD Date: 08/07/14 Family Medicine Mitral Valvular Regurgitation Mitral valvular regurgitation (MVR, MR) is a condition in which there is a leaky mitral valve. The mitral valve is the large valve between the two left chambers of the heart. When the large muscular ventricle contracts to pump blood , the mitral valve keeps that blood from flowing backward and back into the atrium. If there is too much regurgitation, the heart has to work harder. This eventually can cause heart failure. When your heart goes into failure, you do not feel well. You have shortness of breath (dyspnea ) with exertion. The kidneys do not work as well so you may retain fluid. This is one of the reasons your lower legs and ankles may swell. You may have a rapid weight gain. In addition to this swelling, the fluid retention makes fluid back up in the lungs. This causes additional shortness of breath, which then makes the failure worse. The first sign you will usually recognize is shortness of breath with exertion (climbing stairs for example). You will also usually get a rapid heartbeat. Upon discharge from this location, weigh yourself after arriving home. Record your weight at the same time every day as this will provide a record of your progress. As you get better, your weight will usually go down. Follow a low sodium (low salt) diet. You may notice that you get short of breath while sleeping. The heart actually has to work harder while you are lying down. This may also produce a night cough or make it necessary to sleep with two or more pillows. SYMPTOMS You may have no symptoms if mitral regurgitation is mild. It may be discovered only during a routine exam by your caregiver when a heart murmur is heard. DIAGNOSIS The best study for mitral regurgitation is the echocardiogram (ultrasound of the heart). This shows the cause of the MR and how bad it is. It also gives information about the left ventricle and atrium (the two heart chambers that are bridged by the mitral valve.) TREATMENT Early MR may be treated with medications. If there are no medication allergies or problems, DORY Inhibitors are commonly used in the treatment of MR. Under treatment, these symptoms usually improve rapidly. Medications treat but will not cure or slow the progression of the MR. This is more dependent on the cause of the MR. If MR becomes more severe, surgery may become necessary to repair or replace the valve. This is called open heart surgery. There is no absolute age limitation to valve surgery. Eighty year old people have had their valves replaced. The risk of stroke and is low with open heart surgery, but does increase a with age and other medical problems. Elderly patients that are otherwise healthy usually do well with valve replacement surgery. A cardiac catheterization is usually done prior to valve surgery unless the patient is very young. This is done to check the health of coronary arteries. If there are blockages, a bypass can be done while the chest is open for the valve replacement. If you are beginning to have symptoms from mitral regurgitation or are waiting for a surgical procedure to help you with this problem, following are some of the things you can do to help yourself while you are waiting for surgery or are simply putting off the surgery to see if it is needed. HOME CARE INSTRUCTIONS Activity Level--- Your caregiver will help you determine what type of exercise program may be helpful. It is important to maintain strength and increase it if possible. Pace your activities and avoid shortness of breath or chest pain. Plan activities for at least an hour after meals or before eating. This allows your body to handle one activity at a time. Your caregiver can help advise you for activities. Diet--- Maintain a low salt diet or as directed by your caregiver and eat a heart healthy diet. Get diet information from your caregiver or information security architect. Remove your salt shaker and avoid adding salt to you foods. Measure the amounts of fluids you take in per day in cups and record these amounts. Discharge Medications--- You may have been prescribed an DORY inhibitor or a beta primo to take for your heart failure. Take either as directed as this improves your heart function and your survival. Ask your caregiver if being on statins (cholesterol lowering drugs) would be helpful. Weight Monitoring---Weigh yourself today. When you get home, compare it to your scale and record your weight. Weigh twice per day and record these weights and try to weigh at the same time every day. It is best to weigh first thing in the morning, in your same clothes, after going to the bathroom and before eating or drinking anything. Place the scale on a hard surfaced floor. Bring these weights to your caregiver to be reviewed during your appointments. Blood pressure monitoring should be done twice per week. You can get a home blood pressure cuff at your [facility]. Record these values and bring them with you for your clinic visits. Notify your caregiver if you become dizzy or lightheaded upon standing up. Be familiar with your medications--- If you have trouble remembering when you took them, write down times or set your medications out in advance for the day or the week to avoid problems. If you are on medications and do not remember if you have taken your medication, just skip it for that day unless your caregiver advises you otherwise. If you are on a diuretic (water pill), take these in the morning so you are not up all night going to the bathroom. If you are currently a smoker, it is time to quit. Nicotine makes your heart work harder and is one of the leading causes of cardiac (heart) deaths. Do not leave without a smoking cessation plan or instructions on help available to quit smoking. Immunization with influenza and pneumococcal vaccines may reduce the risk of respiratory infection. Nonsteroidal anti-inflammatory drugs should not be used. They can cause sodium (salt) retention and also may hurt the action of diuretics and DORY inhibitors. Aldosterone Antagonists may have beneficial effects. If you do not follow your diet and take your medications properly, this may rapidly lead to emergency care or hospitalization. Follow the advice of your caregiver. What To Do If Symptoms Worsen--- If there are immediate problems go to the Emergency Department. This would include any symptoms which brought you in and which are getting worse rather than better. Call emergency services (911 in [place] ) for immediate care. DAILY PATH TO QUALITY LIVING Monitor weight and record. Monitor blood pressure and record. Monitor fluid intake. Monitor Sodium intake. Monitor Activity Levels. Take your medications. Stop all use of nicotine. Avoid alcohol. Know when to call for help and do so. SEEK IMMEDIATE MEDICAL CARE IF: Your weight increases by 03 lb/1.4 kg in 1 day or 05 lb/2.3 kg in a week, or as your caregiver suggests. You notice increasing shortness of breath during rest, sleeping, or with activity, and which is unusual for you. You develop chest pain. You develop sweating or nausea which is unusual for you. You notice increased swelling in your hands, feet, ankles or abdomen. You have a feeling of fullness in your abdomen or develop nausea or loss of appetite. You notice dizziness, blurred vision, headache, or unsteadiness. Make an appointment with your caregiver as directed for follow-up. MAKE SURE YOU: Understand these instructions. Will watch your condition. Will get help right away if you are not doing well or get worse. Document Released: 05/06/2005 Document Revised: 05/10/2012 Document Reviewed: ExitCare Patient Information 2014 [employer]. No follow up information was provided. Extracted from: Title: Office Visit Note Author: Rhonda Bravo MD Date: 08/07/14 Assessment/Plan Leg pain Ordered: Request for Therapies Mitral regurgitation Neck pain Ordered: Request for Therapies Orders: metoprolol, 25 mg 1 tabs, Oral, Daily, # 90 tabs, 0 Refill(s), other reason (Rx) mometasone nasal, 100 mcg 2 sprays, Nasal, Daily, # 3 Each, 3 Refill(s), Pharmacy: [facility] [address]
--- OUTSIDE RECORDS SUMMARY | 2016-07-19 04:40 | XMS REPORT | Referral Summary ---
Author Author [facility] [place] Organization [facility] Address Unknown Phone Unavailable Care Team Providers Care Supervisor Paper Products Name Role Phone Carlos Bravo Primary Care Physician [phone] Encounter [facility] Date(s): 11/24/14 - 11/24/14 [facility] [place], [address] [place] [id number] Discharge Diagnosis: Hypertension Discharge Diagnosis: Insomnia Discharge [...] Daily, # 90 tabs, 3 Refill(s), Pharmacy: [facility] 99406, 1 tabs Oral Daily Start Date: 11/24/14 Status: Ordered losartan 25 mg oral tablet See Instructions, 1 TABS ORAL DAILY, # 30 tabs, 2 Refill(s), eRx: [facility] [id number], 1 TABS ORAL DAILY Start Date: 03/20/15 Status: Ordered lutein Oral, Daily, 0 Refill(s) Start Date: 09/16/13 Status: Ordered Nasonex 50 mcg/inh nasal spray 100 mcg 2 sprays, Nasal, Daily, # 3 Each, 3 Refill(s), Pharmacy: [facility] [address]21 Start Date: 08/07/14 Status: Ordered ZyrTEC 10 mg, Oral, Daily, 0 Refill(s) Start Date: 02/06/14 Status: Ordered Results No data available for this section Immunizations Vaccine Date Refusal Reason tetanus/diphth/pertuss (Tdap) adult/adol 12/22/11 influenza virus vaccine, live 11/24/12 influenza virus vaccine, live 12/22/11 pneumococcal 13-valent conjugate vaccine1 08/07/14 pneumococcal 23-polyvalent vaccine 10/18/08 zoster vaccine live 08/24/09 1Result Comment: GIVEN BY Senthil DAVIS RNfloriculturist Procedure Date Related Diagnosis Body Site Breast biopsy and related procedures1 1990 Appendectomy2 1973 Hysterectomy3 1973 Tonsillectomy4 1933 Cataract extraction 37996 84281 [id number] Social History Social History Type Response Smoking [...] related to a certain stress or worry. domestic travel consultant insomnia is often related to ongoing stress [...] are generally not recommended for lengthy use. Bdvq-sva-xjzgbgn sleep medicines are not recommended for lengthy [...] 05/10/2012 Document Reviewed: ExitCare Patient Information 2015 [employer]. This information is not intended to replace advice given to you by your health care provider. Make sure you discuss any questions you have with your health care provider. No follow up information was provided. Extracted from: Title: Office Visit Note Author: Paula Haywood DO Date: 11/24/14 Assessment/Plan Hypertension stable, continue current medications. Ordered: Office Visit Level 4 Est 28182 Insomnia patient will try melatonin again at a dose around 3-6 mg. Ordered: Office Visit Level 4 Est 54803 Obstructive sleep apnea, adult Ordered: Office Visit Level 4 Est 84936 Orders: furosemide, 20 mg 1 tabs, Oral, Daily, # 90 tabs, 3 Refill(s), Pharmacy: [facility] 49335, 1 tabs Oral Daily lisinopril, 5 mg 1 tabs, Oral, Daily, # 90 tabs, 3 Refill(s), Pharmacy: [facility] 15572, 1 tabs Oral Daily
--- OUTSIDE RECORDS SUMMARY | 2016-07-19 04:40 | XMS REPORT | Referral Summary ---
Author Author [facility] Organization [facility] Address Unknown Phone Unavailable Care Team Providers Care Distribution Clerk Name Role Phone Carlos Bravo Primary Care Physician [phone] Encounter [facility] Date(s): 07/27/14 - 07/27/14 [facility] [place] [address] [address] Discharge Diagnosis: Obstructive sleep apnea, adult Discharge [...] Daily, # 90 tabs, 3 Refill(s), Pharmacy: [facility] 22449, 1 tabs Oral Daily Start Date: 11/24/14 Status: Ordered lisinopril 5 mg oral tablet 5 mg 1 tabs, Oral, Daily, # 90 tabs, 3 Refill(s), Pharmacy: [facility] 45997, 1 tabs Oral Daily Start Date: 11/24/14 Status: Ordered lutein Oral, Daily, 0 Refill(s) Start Date: 09/16/13 Status: Ordered Nasonex 50 mcg/inh nasal spray 100 mcg 2 sprays, Nasal, Daily, # 3 Each, 3 Refill(s), Pharmacy: [facility] [address] Start Date: 08/07/14 Status: Ordered ZyrTEC 10 mg, Oral, Daily, 0 Refill(s) Start Date: 02/06/14 Status: Ordered Results No data available for this section Immunizations Vaccine Date Refusal Reason tetanus/diphth/pertuss (Tdap) adult/adol 12/22/11 influenza virus vaccine, live 11/24/12 influenza virus vaccine, live 12/22/11 pneumococcal 13-valent conjugate vaccine1 08/07/14 pneumococcal 23-polyvalent vaccine 10/18/08 zoster vaccine live 08/24/09 1Result Comment: GIVEN BY Senthil DAVIS RNinstitutional custodian Procedure Date Related Diagnosis Body Site Breast biopsy and related procedures1 1990 Appendectomy2 1972 Hysterectomy3 1972 Tonsillectomy4 1932 Cataract extraction 74240 86219 [id number] [id number] Social History Social History Type Response Smoking [...] CPAP donated S9 AutoSet/H5i Author: Cielo Christianson INSPECTOR ADVANCED COMPOSITE Date: 07/27/14 Patient donated her cpap and humidifier today. She no longer needs to use cpap per Dr Barnes.
--- OUTSIDE RECORDS SUMMARY | 2016-07-19 04:40 | XMS REPORT | Referral Summary ---
Author Author [facility] Organization [facility] Address Unknown Phone Unavailable Care Team Providers Care Snack Bar Attendant Name Role Phone Carlos Bravo Primary Care Physician [phone] Encounter Date(s): 08/15/14 - 08/15/14 [facility] [address] [place], [place] [address] Discharge Disposition: 01-Home or Self Care Attending Physician: Rhonda Braov MD Admitting Physician: Rhonda Bravo MD Vital Signs No data available for [...] Daily, # 90 tabs, 3 Refill(s), Pharmacy: [facility] [id number], 1 tabs Oral Daily Start Date: 11/24/14 Status: Ordered lisinopril 5 mg oral tablet 5 mg 1 tabs, Oral, Daily, # 90 tabs, 3 Refill(s), Pharmacy: [facility] [id number], 1 tabs Oral Daily Start Date: 11/24/14 Status: Ordered lutein Oral, Daily, 0 Refill(s) Start Date: 09/16/13 Status: Ordered Nasonex 50 mcg/inh nasal spray 100 mcg 2 sprays, Nasal, Daily, # 3 Each, 3 Refill(s), Pharmacy: [facility] [id number] Start Date: 08/07/14 Status: Ordered ZyrTEC 10 mg, Oral, Daily, 0 Refill(s) Start Date: 02/06/14 Status: Ordered Results No data available for this section Immunizations Vaccine Date Refusal Reason tetanus/diphth/pertuss (Tdap) adult/adol 12/22/11 influenza virus vaccine, live 11/24/12 influenza virus vaccine, live 12/22/11 pneumococcal 13-valent conjugate vaccine1 08/07/14 pneumococcal 23-polyvalent vaccine 10/18/08 zoster vaccine live 08/24/09 1Result Comment: GIVEN BY Senthil DAVIS RNpatient registration representative Procedure Date Related Diagnosis Body Site Breast biopsy and related procedures1 1990 Appendectomy2 1973 Hysterectomy3 1973 Tonsillectomy4 193 Cataract extraction [id number] Social History Social History Type Response Smoking Status Former smoker; Type: Cigarettes; Number of years: 41 1Quit in 1962 Assessment and Plan No data available for this section
--- OUTSIDE RECORDS SUMMARY | 2016-07-19 04:40 | XMS REPORT | Continuity of Care Document ---
Author Author Alise TRUONG, Jericho Greco [facility] Ambulatory Address [address] [place] [address] Phone Care Team Providers Care Assistant Press Operator Name Role Phone Rhonda Bravo BIANCA Unavailable Payers Payer name Insurance type Covered democrat ID Authorization(s) Unknown Problems Condition Effective Dates (start - stop) Clinical Status Pleural effusion - *Resolved Shortness of breath - *Resolved Sputum production - *Symptomatic History of breast cancer - *Stable Mitral regurgitation - Moderate Aortic insufficiency - Mild Pulmonary hypertension - Uncertain Influenza Vaccine - NEED FOR PROPHYLACTIC VACCINATION WITH COMBINED [id number] ( DTP) (DTAP) VACCINE - Hypertension, Benign - *Chronic Allergic rhinitis, cause unspecified - *Chronic Back pain - *Chronic Pain in joint, shoulder region - *Chronic Hypertension, Benign - *Chronic Dyspnea - *Chronic Urinary frequency - *Chronic Back pain - *Chronic Abdominal pain - *Chronic Cough - *Chronic Dyspnea - *Chronic Abnormal CT scan of lung - *Chronic Sleep Apnea, Obstructive - *Poor control Chest pain at rest - Recurrent Shortness of breath - Episodic Pulmonary nodule, left - Uncertain Pulmonary hypertension - Uncertain Mitral regurgitation - Moderate History of breast cancer - Uncertain Pleural effusion on left - Uncertain Decreased diffusion capacity - Mild Broken tooth - *Acute Sleep Apnea, Obstructive - Asymptomatic Right Heart Failure - *Chronic Family History Family Member Diagnosis Age At Onset Status Family h/o (Unknown) Diabetes Yes Maternal aunt (Unknown) Cancer - breast Yes Mother (Unknown) Hypertension Yes Social History Social History Element Description Quantity alcohol a variable amount Allergies, Adverse Reactions, Alerts Substance Reaction Severity Status CLINDAMYCIN Unknown PENICILLINS Unknown Unknown Medications Medication Instructions Dosage Effective Dates (start - stop) Status ciprofloxacin 250 mg tablet take 1 tablet (250MG) by oral route every 12 hours 250 MG - Active Claritin 10 mg tablet take 1 tablet (10MG) by oral route every day 10 MG - Active Aleve 220 mg tablet take 1 tablet (220MG) by oral route every 12 hours as needed 220 MG - Active omqjlxasdp-xidjsqhatguir-cuozcoqc 50 mg-325 mg-40 mg capsule TAKE 1 CAPSULE PO Q4 HRS, PRN FOR HEADACHE - Active Coricidin HBP Cough & Cold 4 mg-30 mg tablet take 1 Tablet by oral route every 12 hours as needed for cough 0 - Active Lasix 40 mg tablet take 1 Tablet by Oral route every day 0 - Active potassium chloride ER 10 mEq capsule,extended release take 1 by Oral route every day when you take furosemide 0 - Active metoprolol tartrate 50 mg tablet Take 1 tablet by mouth every day. 2013 - Active Immunizations Vaccine Date Status Comments flu (split) preservative free, 3 yrs or older completed Tdap (Boostrix r) completed Fluzone HD 0.5 completed Results Test Name Date and Time Measure Units Reference Range Abnormal Flag Comments Panel Description: Quantiferon Gold TB-AMS Quantiferon TB Test 11:04:00 Negative Negative Testing performed at [address] [address] Public Service Director Amaury Morse MD Panel Description: Quantiferon Gold TB-AMS Quantiferon TB Test 11:04:00 Negative Negative Testing performed at [place] [id number] Public Service Director Amaury Morse MD Panel Description: Quantiferon Gold TB-AMS Quantiferon TB Test 11:04:00 Negative Negative Testing performed at [place] [address] [address] [facility] [address] Public Service Director Amaury Morse MD Panel Description: Quantiferon Gold TB-AMS Quantiferon TB Test 11:04:00 Negative Negative Testing performed at [place] [address] [facility] [address] Public Service Director Amaury Morse MD Panel Description: Quantiferon Gold TB-AMS Quantiferon TB Test 11:04:00 Negative Negative Testing performed at [place] [address] [facility] [address] Public Service Director Amaury Morse MD Panel Description: Quantiferon Gold TB-AMS Quantiferon TB Test 11:04:00 Negative Negative Testing performed at [place] [address] [address] [facility] [address] Public Service Director Amaury Morse MD Vital Signs Date / Time: Height Weight Pulse Rate Blood Pressure Temperature /13:01:00 61.00 in 141.00 lbs 56 /min 158/70 mm[Hg] 97.7 F Procedures Procedure Date Unknown Encounters Encounter Location Date Patient Visit [facility] Charlie Pulmo Patient Visit [facility] Patient Visit [facility] Patient Visit [facility] Patient Visit [facility] Ibrahim Patient Visit [facility] Patient Visit [facility] Patient Visit [facility] Patient Visit [facility] Mur Pulmo Patient Visit [facility] Patient Visit [facility] Patient Visit [facility] Charlie Card Advance Directives Directive Effective Date Unknown
--- NOTE | 2016-07-19 04:45 | ERPDOC ---
Departure Disposition Decision Date: July 19, 2016 Disposition Decision Time: 06:35 Disposition: 01 DISCHARGED HOME, SELF-CARE Impression Impression Impression: Primary Impression: Back pain Back pain location: thoracic back pain Chronicity: acute Back pain laterality: bilateral Qualified Codes: M54.6 - Pain in thoracic spine Additional Impression: Paresthesia of both hands Severity: Moderate Condition: Improved Seen By: Physician only Referrals: RAY CACERES MD (Family) 1 Week Patient Instructions: Back Pain (ED) Problems/Meds/Labs Reviewed?: Yes Medications reviewed and manag: Yes Additional Instructions: You have back pain and paresethesias (pain) into your arms. We did not find the cause of your symptoms tonight, but we also did not find any emergent causes. Follow up with your doctor next week. Follow up care ordered?: Yes HPI - Cardiac General Stated Complaint: PAIN L ARM Time Seen by Provider: 04:40 Source: patient Exam Limitations: no limitations HPI - Cardiac General Initial Comments 89yo woman presented to the ER tonight for chest pain. Pt has had several, fleeting episodes of b/l mid-back pain with radiation down both arms. Sx have come/gone over the space of the last few days. BP tonight is 230s/130s. Occurred At: home Onset/Timing: Gradual, Getting worse Duration: 1 week Pain/Severity Scale: Now: 2/10, Worst: 8/10 Severity: mild Location: back Activities at Onset/Context: none Associated Symptoms: malaise, shortness of breath Hx of Similar Symptoms: Yes Allergies: Coded Allergies: Penicillins (Unverified Allergy, Unknown, DOES NOT REMEMBER, 08/19/13) clindamycin (Unverified Allergy, Unknown, "DIGESTIVE SYSTEM PROBLEM", 08/19) Past History Patient Medical History (1) Osteoporosis Past Medical History Metabolic: hypertension ENMT: cataracts GI: IBS Neurological: migraines Surgical History Joint: other Vaccines Hx Influenza Vaccination: Yes (01/08) Hx Pneumococcal Vaccination: Yes (2007) Review of Systems Musculoskeletal General: pain (Back; radiation down arms) All other Systems All Other Systems: Reviewed and Negative Physical Exam General General Nourishment: well nourished, well developed, appears stated age, no acute distress, adult, thin General Body Habitus: well groomed Vitals and Pain Weight: Kilograms: Height (feet): Height (inches): Triage Pain Scale: RN VS reviewed by Provider: Yes Normal Exams: Head: Normocephalic w/o trauma Eyes: Pupils are PERRLA w/ EOMI, No scleral icterus, irritation ENMT: No facial trauma, nasal exudates, pharyngeal erythema Neck: Full range of motion, without adenopathy, JVD Lymphatic: No lymphadenopathy Musculoskeletal: No tenderness, or deformity noted Integumentary: No rashes, hives, or bruising noted Neurologic: Patient is alert, and oriented Psychiatric: Patient exhibits, appropriate attention Respiratory (brief) Respiratory: FOUND: clear all vizcarra, equal bilaterally, symmetrical, NOT FOUND : rales, wheezes Cardiovascular (brief) Cardiac: FOUND: regular rate, regular rhythm, NOT FOUND: click, gallop, murmur , pedal edema, peripheral edema, rub Capillary Refill: <2 sec Pulses: all distal extremities, equal, strong Differential Diagnoses Considering: Acute LA, Anxiety/Panic, Angina, Aortic Dissection, Heart Block, Pericarditis, PSVT, Pulmonary Edema Progress Results/Orders Orders Procedure Category Date Status Time Cbc W/Auto LAB 07/19/16 Complete Diff-Reflex Manual 04:40 Bmp - Basic Metabolic LAB 07/19/16 Complete Panel 04:40 Probnp LAB 07/19/16 Complete 04:40 Troponin I W LAB 07/19/16 Complete Hemolysis Index 04:40 INR LAB 07/19/16 Complete 04:40 EKG EKG 07/19/16 Taken 04:40 Iv Lock (Ed Only) EDM 07/19/16 Transmitted 04:40 Normal Saline (Normal PHA 07/19/16 Complete Saline Iv) 04:[address] 07/19/16 Logged 04:40 Bilateral Blood EDM 07/19/16 Transmitted Pressure 04:40 Hydralazine PHA 07/19/16 Complete (Apresoline) 04:45 Iohexol (Omnipaque) PHA 07/19/16 Complete 04:54 Iohexol (Omnipaque) PHA 07/19/16 Complete 04:54 Normal Saline (Ns) PHA 07/19/16 Complete 04:54 Lab Results Laboratory Tests Test 07/19/16 04:45 White Blood Count 6.2T/MM3 Red Blood Count 4.36M/MM3 Hemoglobin 13.7GM/DL Hematocrit 42.5% Mean Corpuscular Volume 97.5UM3 Mean Corpuscular Hemoglobin 31.4UUG Mean Corpuscular Hemoglobin Concent 32.2GM/DL RDW Standard Deviation 45.8FL Platelet Count 157T/MM3 Mean Platelet Volume 11.5UM3 Immature Granulocyte % (Auto) 0.2% Neutrophils (%) (Auto) 55.4% Lymphocytes (%) (Auto) 32.5% Monocytes (%) (Auto) 8.3% Eosinophils (%) (Auto) 3.1% Basophils (%) (Auto) 0.5% Absolute Immature Granulocyte (auto 0.01T/MM3 Absolute Neutrophils (auto) 3.4T/MM3 Absolute Lymphocytes (auto) 2.0T/MM3 Absolute Monocytes (auto) 0.5T/MM3 Absolute Eosinophils (auto) 0.2T/MM3 Absolute Basophils (auto) 0.0T/MM3 Prothromb Time International Ratio 0.98 Turbidity < 20 Sodium Level 147MEQ/L Potassium Level 4.4MEQ/L Chloride Level 106MEQ/L Carbon Dioxide Level 29MEQ/L Anion Gap 12MEQ/L Blood Urea Nitrogen 22.0MG/DL Creatinine 0.7MG/DL Glomerular Filtration Rate Calc 79 BUN/Creatinine Ratio 31RATIO Glucose Level 97MG/DL Calculated Osmolality 285MOSM/KG Calcium Level 8.9MG/DL Icterus Index < 2 Troponin I < 0.012ng/ml SJ-Kkm-U-Type Natriuretic Peptide 178PG/ML Chemistry Specimen Hemolysis < 15 Medications Current ED Medications Sodium Chloride (Normal Saline IV) 1,000 ml @ 0 mls/hr Q0M ONCE IV Last administered on 07/19/16t 06:19; Start 07/19/16 at 04:40; Stop 07/19/16 at 04:41 ; Status DC Hydralazine HCl (Apresoline) 20 mg O ONCE IV ; Start 07/19/16 at 04:45; Stop at 04:46; Status DC Iohexol (Omnipaque) 1 bottle STK-MED ONCE .ROUTE ; Start 07/19/16 at 04:54; Stop 07/19/16 at 04:55; Status DC Iohexol 1 bottle 1 bottle STK-MED ONCE .ROUTE ; Start 07/19/16 at 04:54; Stop at 04:55; Status DC Sodium Chloride (NS) 100 ml @ As Directed STK-MED ONCE .ROUTE ; Start 07/19/16 at 04:54; Stop 07/19/16 at 04:55; Status DC Progress Progress 89yo woman with essentially normal exam, labs/rads. Discussed lack of urgent/ emergent findings with pt. Pt voiced understanding of dx, prognosis, tx, and f/ u need. EKG EKG : Rate: 60-100 Rhythm: sinus [place]: normal QRS: normal Intervals: normal ST/T: normal Interpreted by: signing physician CT CT : CT: Aorta IV contrast Interpretation: Normal, Interpreted by HARRY Gardner DO July 19, 2016 04:45
[2016-07-19 04:50] LABS: BASOPHILS % (AUTO) 0.5 % (0-2); EOSINOPHILS # (AUTO) 0.2 T/MM3 (0-0.5); EOSINOPHILS % (AUTO) 3.1 % (0-4); HCT - HEMATOCRIT 42.5 % (36-46); HGB - HEMOGLOBIN 13.7 GM/DL (12-16); IMMATURE GRANULOCYTE # (AUTO) 0.01 T/MM3 (0.00-0.03); IMMATURE GRANULOCYTE % (AUTO) 0.2 % (0.0-0.5); LYMPHOCYTES % (AUTO) 32.5 % (23-45); MEAN CORPUSCULAR HGB 31.4 UUG (26-34); MEAN CORPUSCULAR HGB CONC(MCHC 32.2 GM/DL (31-37); MEAN CORPUSCULAR VOLUME 97.5 UM3 (80-100); MEAN PLATELET VOLUME 11.5 UM3 (9.4-12.4); MONOCYTES # (AUTO) 0.5 T/MM3 (0-0.8); MONOCYTES % (AUTO) 8.3 % (0-9.0); NEUTROPHILS #(AUTO)-ABSOLUTE 3.4 T/MM3 (1.8-7.7); NEUTROPHILS % (AUTO) 55.4 % (33-66); RED BLOOD COUNT 4.36 M/MM3 (4.00-5.20); WBC - WHITE BLOOD COUNT 6.2 T/MM3 (4.5-11.0)
[2016-07-19] MEDS ORDERED: IOHEXOL 350 MG/ML 50ml INJECTION ONE (04:54)
[2016-07-19] MEDS ORDERED: IOHEXOL 350 MG/ML 75ml INJECTION ONE (04:54)
[2016-07-19] MEDS ORDERED: NORMAL SALINE 100 ML ONE (04:54)
--- OUTSIDE RECORDS SUMMARY | 2016-07-19 04:56 | XMS REPORT | Continuity of Care Document ---
Author Author [facility] Organization [facility] Address Unknown Phone Unavailable Allergies Medications Problems Procedures Results Encounters ACCT No. Visit Date/Time Discharge Status Pt. Type Provider Facility Loc./Unit Complaint [id number] 04/19/2013 12:58:00 04/19/2013 23 :59:59 CLS Outpatient
[2016-07-19 05:00] LABS: INR 0.98 (0.77-1.03); PROTHROMBIN TIME 10.8 SEC (9.48-12.52)
[2016-07-19 05:01] LABS: ANION GAP 12 MEQ/L (5-15); BUN/CREATININE RATIO 31 RATIO (6-26); CALCIUM 8.9 MG/DL (8.4-10.2); CHLORIDE 106 MEQ/L (98-107); CO2 - CARBON DIOXIDE 29 MEQ/L (22-30); CREATININE 0.7 MG/DL (0.7-1.2); GLOMERULAR FILTRATION RATE 79; GLUCOSE 97 MG/DL (65-110); POTASSIUM 4.4 MEQ/L (3.6-5); SODIUM 147 MEQ/L (134-144)
[2016-07-19 05:12] LABS: PROBNP 178 PG/ML (0-175)
--- NOTE | 2016-07-19 06:42 | NUR ---
IV DC'D WITH CATH INTACT. 550CC INFUSED
[2016-07-19 06:49] VITALS: BP 181/79; PULSE 73; RESP 20; TEMP 97.7; O2SAT 97
--- NOTE | 2016-07-19 06:49 | NUR ---
DISMISSAL DISMISSAL INSTRUCTIONS TO PT WITHOUT FURTHER QUESTIONS. PT REPORTS SHE IS FEELING BETTER. NO COMPLAINTS OF PAIN AND THE FEELING IN HER FACE HAS IMPROVED.
[2016-07-19] MEDS ORDERED: FURO20TA4 PO (06:53)
[2016-07-19] MEDS ORDERED: LOSA25TA34 PO (06:53)
[2016-07-19] MEDS ORDERED: GABA-336 PO (06:53)
--- NOTE | 2016-07-20 11:43 | DI ---
Indication: ITS.REASON: HTN, back pain PROCEDURE: CTA AORTA: Encounter: Initial Comparison: None Technique: Axial CT angiographic imaging of the chest, abdomen and pelvis was performed before and after the administration of intravenous contrast. Coronal and sagittal MIP reconstructed images were created and reviewed. Three-dimensional surface shaded volume rendered imaging of the aorta and arterial vasculature was created by the technologist on a dedicated workstation under the direction of the interpreting radiologist and reviewed. Automated Exposure Control and Iterative Reconstruction dose reducing techniques were utilized. Contrast: 120 mL Omnipaque 350 Findings: CT angiogram of the chest with and without contrast: No intramural hematoma seen on the noncontrast images. Postcontrast images show no evidence of aneurysm or dissection. Lung windows show mild subpleural scarring without focal pneumonia, edema, pneumothorax or pleural effusion. Scarring along the right major fissure. No axillary or mediastinal adenopathy. Increased number of paratracheal nodes. Heart size is normal. No pericardial effusion. CT angiogram of the abdomen and pelvis with and without contrast: No evidence of aneurysm or dissection. Scattered atherosclerotic arterial plaque. Bladder is mildly distended. Sigmoid diverticulosis without diverticulitis. No bowel obstruction. Hepatic cysts. The gallbladder, spleen, pancreas, adrenals and kidneys are grossly normal. Bone windows show degenerative changes in the spine. 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 Scoliosis. Impression: CT angiogram of the chest: No acute aortic syndrome or acute disease process seen. CT angiogram of the abdomen and pelvis: No acute aortic syndrome or acute disease process seen. There is a preliminary report by PT [facility] Selaras. .
== END 2016-07-19 06:49 | disposition home or self-care (01) ==
LOC: ED 04:34
DX: R07.9 Chest pain, unspecified (principal); M54.6 Pain in thoracic spine; R20.2 Paresthesia of skin; R06.02 Shortness of breath; R53.81 Other malaise; I10 Essential (primary) hypertension
CPT/HCPCS: 71275; 74175; 80048; 83880; 84484; 85025; 85610; 93005; 99284; J7030; J7050; Q9967

== ENCOUNTER 2016-11-04 20:03 | Inpatient (IN) ==
--- NOTE | 2016-11-04 20:15 | Emergency Department Report ---
Nausea/Vomiting/Diarrhea HPI - General Chief complaint: Nausea/Vomiting/Diarrhea Stated complaint: n/v, abd pain Time Seen by Provider: 11/04/16 20:11 Source: patient Mode of arrival: EMS Limitations: no limitations - History of Present Illness HPI Narrative: Pt states she was not feeling well 3 days ago with upset stomach and general malaise which improved throughout the day. The next day she had return of N/V which again resolved on its own. Today symptoms have increased and pt states she has also had episodes of dizziness and hearing loss to her left ear MD complaint: nausea, vomiting, abdominal pain Onset (ago): day(s) Associated Abdominal Pain: Yes Location of pain: diffuse Severity: moderate Severity scale (1-10): 9 Quality: aching Consistency: constant Relieving factors: none Exacerbating factors: none Associated symptoms: headaches, loss of appetite, nausea/vomiting - Related Data Home Medications Medication Instructions Recorded Confirmed Furosemide 20 mg PO DAILY #90 07/19/16 11/04/16 Gabapentin 100 mg PO HS #30 07/19/16 11/04/16 Losartan Potassium 25 mg PO DAILY #90 07/19/16 11/04/16 Bisoprolol [Zebeta] 2.5 mg PO DAILY 11/04/16 11/04/16 Allergies Allergy/AdvReac Type Severity Reaction Status Date / Time clindamycin Allergy Unknown "DIGESTIVE Verified 11/04/16 20:42 SYSTEM PROBLEM" Penicillins Allergy Unknown DOES NOT Verified 11/04/16 20:42 REMEMBER Review of Systems All systems: reviewed and negative except as stated Constitutional: Denies: fever, chills, weakness Cardiovascular: Denies: chest pain, palpitations Respiratory: Denies: cough, dyspnea Gastrointestinal: Reports: abdominal pain, nausea, vomiting Musculoskeletal: Denies: back pain Neurological: Reports: headache Psychiatric: Denies: anxiety, depression Physical Exam - Limitations Limitations: no limitations - General General appearance: alert - Normal Exams: Head:: Normocephalic without trauma Eyes:: Pupils are PERRLA w/ EOMI Neck:: Full range of motion Chest/Respirations:: Clear all vizcarra, with good airflow Cardiovascular:: Regular rate and rhythm, Pulses 2+ all extremities, capillary refill Musculoskeletal:: No tenderness, good range of motion, all extremities Integumentary:: No rashes Neurological:: Patient is alert, and oriented Psychiatric:: Patient exhibits, appropriate attention - ENT ENT exam: Present: normal exam, TM's normal bilaterally, normal external ear exam - Abdominal Exam Abdominal exam: Present: soft, tenderness, hypoactive bowel sounds Abdominal tenderness: Present: diffuse - Skin Skin exam: Present: warm, dry, intact, normal color - Neurological Exam Neurological exam: Present: alert, oriented X3 - Psychiatric Psychiatric exam: Present: normal affect, normal mood Course - Consultations Consultation #1: Blue with telemedicine for admission Time: 22:30 Vital Signs Temperature 98.0 F 11/04/16 20:03 Respiratory Rate 18 11/04/16 20:03 Temperature 98.0 F 11/04/16 20:03 Pulse Rate 54 L 11/04/16 20:48 Respiratory Rate 18 11/04/16 20:03 Blood Pressure 197/81 H 11/04/16 20:48 Pulse Oximetry 96 11/04/16 20:48 Nausea/Vomiting/Diarrhea - [facility] Narrative Medical decision making narrative: Although pt states symptoms improved she continues to have N/V. CT shows multiple liver masses in addition to colonic diverticulosis. All labs are acutely within normal limits still awaiting ua results. Will admit for continued care - Differential Diagnosis Likely: gastroenteritis, clostridium difficile infection, drug-induced nausea and vomiting, dehydration - Lab Data awaiting urine results Result diagrams: 11/04/16 20:12 11/04/16 20:12 Lab Results 11/04/16 11/04/16 Range/Units 20:12 20:12 WBC 9.7 (4.5-11.0) T/MM3 RBC 4.47 (4.00-5.20) M/MM3 Hgb 14.0 (12-16) GM/DL Hct 42.6 (36-46) % MCV 95.3 (80-100) UM3 MCH 31.3 (26-34) UUG MCHC 32.9 (31-37) GM/DL RDW Std Deviation 42.9 (36.9-50.2) FL Plt Count 179 (130-400) T/MM3 MPV 11.7 (9.4-12.4) UM3 Immature Gran % (Auto) 0.3 (0.0-0.5) % Neut % (Auto) 80.0 H (33-66) % Lymph % (Auto) 15.6 L (23-45) % [place] % (Auto) 3.6 (0-9.0) % Eos % (Auto) 0.3 (0-4) % Baso % (Auto) 0.2 (0-2) % Neut # 7.7 (1.8-7.7) T/MM3 Lymph # 1.5 (1-4.8) T/MM3 [place] # 0.4 (0-0.8) T/MM3 Eos # 0.0 (0-0.5) T/MM3 Baso # 0.0 (0-0.2) T/MM3 Abs Immat Gran (auto) 0.03 (0.00-0.03) T/MM3 Turbidity < 20 (0-20) Sodium 141 (134-144) MEQ/L Potassium 4.2 (3.6-5) MEQ/L Chloride 98 (98-107) MEQ/L Carbon Dioxide 29 (22-30) MEQ/L Anion Gap 14 (5-15) MEQ/L BUN 15.0 (7-17) MG/DL Creatinine 0.6 L (0.7-1.2) MG/DL GFR Calculation 94 BUN/Creatinine Ratio 25 (6-26) RATIO Glucose 139 H (65-110) MG/DL Calculated Osmolality 274 (261-280) MOSM/KG Calcium 9.7 (8.4-10.2) MG/DL Total Bilirubin 0.80 (0.20-1.30) MG/DL Icterus Index < 2 (0-7) AST 31 (14-36) U/L ALT 29 (9-52) U/L Alkaline Phosphatase 73 (38-126) U/L Total Protein 7.9 (6.3-8.2) G/DL Albumin 4.6 (3.5-5.0) G/DL Globulin 3.3 (2.4-3.6) G/DL Albumin/Globulin Ratio 1.4 (1.1-2.2) RATIO Lipase 110 (23-300) U/L Specimen Hemolysis < 15 (0-25) - Radiology Data per vrad report Disposition Clinical Impression: Vomiting Qualifiers: Vomiting type: cyclical vomiting Vomiting Intractability: intractable Nausea presence: with nausea Qualified Code(s): G43.A1 - Cyclical vomiting, intractable Disposition: 02 To [facility] Acute Care Condition: Stable Prescriptions: No Action Losartan Potassium 25 mg PO DAILY #90 Furosemide 20 mg PO DAILY #90 Bisoprolol [Zebeta] 2.5 mg PO DAILY Gabapentin 100 mg PO HS #30 Referrals: Rhonda Bravo MD [Family Provider] - Time of Disposition: 22:46 - Seen By: midlevel
[2016-11-04] MEDS ORDERED: ONDANSETRON 4 MG/2 ML INJECTION IVP ONE (20:30)
[2016-11-04] MEDS ORDERED: MORPHINE SULFATE 4 MG SYRINGE IVP ONE (20:31)
[2016-11-04] MEDS: SALINE FLUSH 10ml SYRINGE IVF PRN (20:43)
--- OUTSIDE RECORDS SUMMARY | 2016-11-04 21:07 | External Medical Summary | Referral Summary ---
:1925 Author Organization [facility] Address [address] [place] [address] [place] [address] Care Team Providers Name Role Phone Rhonda Bravo Primary Care Physician Encounter [facility] Date(s): 09/13/14 - 09/13/14 [facility] [address] [place] [address] [place] [address] [place] Discharge Diagnosis: Apnea, sleep Discharge Diagnosis: Mitral insufficiency Discharge Diagnosis: Hypertension, essential Discharge Diagnosis: Aortic stenosis Discharge Disposition: 01-Home or Self Care Attending Physician: Titus Storm MD Admitting Physician: Titus Storm MD Referring Physician: Rhonda Bravo MD Vital Signs Most recent to oldest [Reference Range]: 1 Peripheral Pulse Rate [60-100 bpm] 80 bpm (09/13/14 11:49 AM) Blood Pressure [90-140/60-90 mmHg] 132/82 mmHg (09/13/14 11:49 AM) Problem List Condition Effective Dates Status Health Status Informant Anemia(Confirmed) Active Arthritis(Confirmed) Active Cataracts(Confirmed) Resolved Skin Conditions(Confirmed) Active Heart murmur(Confirmed) Active Hyperlipidemia(Confirmed) Resolved Hypertension(Confirmed) Active IBS(Confirmed) Active Ear infection(Confirmed) Active Insomnia(Confirmed) Active Obstructive sleep apnea, Active adult(Confirmed) Osteopenia(Confirmed) Active Pneumonia(Confirmed) Resolved Speech problem(Confirmed) Active Tension headache(Confirmed) Resolved Chicken pox(Confirmed) Active Allergies, Adverse Reactions, Alerts Substance Reaction Severity Status clindamycin Active penicillin Unknown Active Medications Lasix 20 mg oral tablet 20 mg 1 tabs, Oral, Daily, # 90 tabs, 3 Refill(s), Pharmacy: [id number], 1 tabs OralDaily Start Date: 11/24/14 Status: Orderedlosartan 25 mg oral tablet See Instructions, 1 TABS ORAL DAILY, # 30 tabs, 2 Refill(s), eRx: [facility] [id number], 1 TABSORAL DAILY Start Date: 03/20/15 Status: Orderedlutein Oral, Daily, 0 Refill(s) Start Date: 09/16/13 Status: OrderedNasonex 50 mcg/inh nasal spray 100 mcg 2 sprays, Nasal, Daily, # 3 Each, 3 Refill(s), Pharmacy: [facility] [id number] Start Date: 08/07/14 Status: OrderedZyrTEC 10 mg, Oral, Daily, 0 Refill(s) Start Date: 02/06/14 Status: Ordered Results No data available for this section Immunizations Vaccine Date Refusal Reason tetanus/diphth/pertuss (Tdap) adult/adol 12/22/11 influenza virus vaccine, live 11/24/12 influenza virus vaccine, live 12/22/11 pneumococcal 13-valent conjugate vaccine1 08/07/14 pneumococcal 23-polyvalent vaccine 10/18/08 zoster vaccine live 08/24/09 1Result Comment: GIVEN BY Senthil DAVIS RNvba programmer Procedure Date Related Diagnosis Body Site Breast biopsy and related procedures1 1990 Appendectomy2 1972 Hysterectomy3 1972 Tonsillectomy4 1932 Cataract extraction [id number] Social History Social History Type Response Smoking Status Former smoker; Type: Cigarettes; Number of years: 41 1Quit in 1961 Assessment and Plan No data available for this section
--- OUTSIDE RECORDS SUMMARY | 2016-11-04 21:07 | External Medical Summary | Referral Summary ---
:1925 Author Organization [facility] Address [address] [place] [address] [place] [id number] Care Team Providers Name Role Phone Rhonda Bravo Primary Care Physician Encounter [facility] Date(s): 02/20/15 - 02/20/15 [facility] [address] [place] [address] [place] [address] [place] Discharge Disposition: 01-Home or Self Care Attending Physician: Rhonda Bravo MD Admitting Physician: Rhonda Bravo MD Vital Signs Most recent to oldest [Reference Range]: 1 Temperature Tympanic [36.6-38.1 degC] 36.4 degC *LOW* (02/20/15 11:51 AM) Peripheral Pulse Rate [60-100 bpm] 68 bpm (02/20/15 11:51 AM) Blood Pressure [90-140/60-90 mmHg] 152/82 mmHg *HI* (02/20/15 11:51 AM) Problem List Condition [...] BID, 0 Refill(s) Start Date: 09/13/14 Status: OrderedLasix 20 mg oral tablet 20 mg 1 tabs, Oral, Daily, # 90 tabs, 3 Refill(s), Pharmacy: [facility] 12435, 1 tabs OralDaily Start Date: 11/24/14 Status: Orderedlisinopril 5 mg oral tablet 5 mg 1 tabs, Oral, Daily, # 90 tabs, 3 Refill(s), [facility], 1 tabs Oral Daily Start Date: 11/24/14 Status: Orderedlutein Oral, Daily, 0 Refill(s) Start Date: 09/16/13 Status: OrderedNasonex 50 mcg/inh nasal spray 100 mcg 2 sprays, Nasal, Daily, # 3 Each, 3 Refill(s), [facility] Start Date: 08/07/14 Status: OrderedZyrTEC 10 mg, Oral, Daily, 0 Refill(s) Start Date: 02/06/14 Status: Ordered Results No data available for this section Immunizations Vaccine Date Refusal Reason tetanus/diphth/pertuss (Tdap) adult/adol 12/22/11 influenza virus vaccine, live 11/24/12 influenza virus vaccine, live 12/22/11 pneumococcal 13-valent conjugate vaccine1 08/07/14 pneumococcal 23-polyvalent vaccine 10/18/08 zoster vaccine live 08/24/09 1Result Comment: GIVEN BY Senthil DAVIS RNforeign law consultant Procedure Date Related Diagnosis Body Site Breast biopsy and related procedures1 1990 Appendectomy2 1972 Hysterectomy3 1972 Tonsillectomy4 1932 Cataract extraction [id number] Social History Social History Type Response Smoking Status Former smoker; Type: Cigarettes; Number of years: 41 1Quit in 1961 Assessment and Plan Extracted from: Title: Reclast/zoledronic acid 2nd year Author: Ashli Brown RN Date: 02/20 given Pt here for zoledronic acid/Reclast infusion. See IV notes for specifics. Pt advised to drink adequate water the next 24 hrours. Pt tolerated infusion well. Left ambulatory without difficulty. Pt to have DEXA in 2015.
--- OUTSIDE RECORDS SUMMARY | 2016-11-04 21:07 | External Medical Summary | Referral Summary ---
:1925 Author Organization [facility] Address [address] [place] [address] Care Team Providers Name Role Phone Rhonda Bravo Primary Care Physician Encounter [facility] [id number] Date(s): 03/20/15 - 03/20/15 [facility] [address] [place] [address] [place] Discharge Disposition: 01-Home or Self Care [...] Daily, # 90 tabs, 3 Refill(s), Pharmacy: [facility] [id number], 1 tabs OralDaily Start Date: 11/24/14 Status: Orderedlosartan 25 mg oral tablet See Instructions, 1 TABS ORAL DAILY, # 30 tabs, 2 Refill(s), eRx: [facility] [id number], 1 TABSORAL DAILY Start Date: 03/20/15 Status: Orderedlutein Oral, Daily, 0 Refill(s) Start Date: 09/16/13 Status: OrderedNasonex 50 mcg/inh nasal spray 100 mcg 2 sprays, Nasal, Daily, # 3 Each, 3 Refill(s), Pharmacy: [facility] [id number] Start Date: 08/07/14 Status: OrderedZyrTEC 10 mg, Oral, Daily, 0 Refill(s) Start Date: 02/06/14 Status: Ordered Results No data available for this section Immunizations Vaccine Date Refusal Reason tetanus/diphth/pertuss (Tdap) adult/adol 12/22/11 influenza virus vaccine, live 11/24/12 influenza virus vaccine, live 12/22/11 pneumococcal 13-valent conjugate vaccine1 08/07/14 pneumococcal 23-polyvalent vaccine 10/18/08 zoster vaccine live 08/24/09 1Result Comment: GIVEN BY Senthil DAVIS RNgastroenterologist Procedure Date Related Diagnosis Body Site Breast biopsy and related procedures1 1990 Appendectomy2 1972 Hysterectomy3 1973 Tonsillectomy4 193 Cataract extraction [id number] Social History Social History Type Response Smoking Status Former smoker; Type: Cigarettes; Number of years: 41 1Quit in 1961 Assessment and Plan No data available for this section
--- OUTSIDE RECORDS SUMMARY | 2016-11-04 21:07 | External Medical Summary | Referral Summary ---
:1925 [facility] Address [address] [place] [address] [place] [address] Care Team Providers Name Role Phone Paula Haywood Primary Care Physician Encounter [facility] Date(s): 11/24/14 - 11/24/14 [facility] [place] [address] [place] Discharge Diagnosis: Hypertension Discharge Diagnosis: Insomnia Discharge Diagnosis: Obstructive sleep apnea, adult Discharge Disposition: 01-Home or Self Care Attending Physician: Paula Haywood DO Admitting Physician: Luz Benjamin APRN Vital Signs Most recent to oldest [Reference Range]: 1 Temperature Tympanic [36.6-38.1 degC] 36.9 degC (11/24/14 9:01 AM) Peripheral Pulse Rate [60-100 bpm] 76 bpm (11/24/14 9:01 AM) Respiratory Rate [14-20 br/min] 16 br/min (11/24/14 9:01 AM) Blood Pressure [90-140/60-90 mmHg] 150/88 mmHg *HI* (11/24/14 9:01 AM) SpO2 96 % [...] Daily, # 90 tabs, 3 Refill(s), [facility], 1 tabs OralDaily Start Date: 11/24/14 Status: Orderedlisinopril 5 mg oral tablet 5 mg 1 tabs, Oral, Daily, # 90 tabs, 3 Refill(s), Pharmacy: [facility] [id number], 1 tabs Oral Daily Start Date: 11/24/14 Status: Orderedlutein Oral, Daily, 0 Refill(s) Start Date: 09/16/13 Status: OrderedNasonex 50 mcg/inh nasal spray 100 mcg 2 sprays, Nasal, Daily, # 3 Each, 3 Refill(s), [facility] [address] Start Date: 08/07/14 Status: OrderedZyrTEC 10 mg, Oral, Daily, 0 Refill(s) Start Date: 02/06/14 Status: Ordered Results No data available for this section Immunizations Vaccine Date Refusal Reason tetanus/diphth/pertuss (Tdap) adult/adol 12/22/11 influenza virus vaccine, live 11/24/12 influenza virus vaccine, live 12/22/11 pneumococcal 13-valent conjugate vaccine1 08/07/14 pneumococcal 23-polyvalent vaccine 10/18/08 zoster vaccine live 08/24/09 1Result Comment: GIVEN BY Senthil DAVIS RNvp home health Procedure Date Related Diagnosis Body Site Breast biopsy and related procedures1 1990 Appendectomy2 1972 Hysterectomy3 1972 Tonsillectomy4 193 Cataract extraction [id number] Social History Social History Type Response Smoking Status Former smoker; Type: Cigarettes; Number of years: 41 1Quit in 1961 Assessment and Plan Extracted from: Title: Ambulatory Patient Education Author: Paula Haywood DO Date: 11/24/14 Behavioral Health Insomnia Insomnia is frequent trouble falling and/or staying asleep. Insomnia can be a local intermodal truck driver problem or a short term problem. Both are common. Insomnia can be a short term problem when the wakefulness is rel ated to a certain stress or worry. long-term insomnia is often related to ongoing stress during waking hours and/or poor sleeping habits. Overtime, sleep deprivation itself can make the problem worse. E very little thing feels more severe because you [...] Sleep apnea requires a checkup and treatment. G eder your caregivers your medical history. Give your caregivers observations your family has made about your sleep. SYMPTOMS Not feeling rested in the morning. Anxiety and restlessness at bedtime. Difficulty falling and staying asleep. TREATMENT Your caregiver may prescribe treatment for an underlying medical disorders. Your caregiver can give advice or help if you are using alcohol or other drugs for self-medication. Treatment of underlyi ng problems will usually eliminate insomnia problems. Medications can be prescribed for short time use. They are generally not recommended for lengthy use. [id number] sleep medicines are not recommended for lengthy [...] can also help control troubling or intruding thought s by keeping your mind occupied with boring [...] Released: 02/13/2001 Document Revised: 05/10/2012 Document Reviewed: 03/15/2008 ExitCare Patient Information 2015 [employer], [facility]. This information is not intended to replace advice given to you by your health care provider. Make sure you discuss any questions you have with your health care provider. No follow up information was provided. Extracted from: Title: Office Visit Note Author: Paula Haywood DO Date: 11/24/14 Assessment/Plan Hypertension stable, continue current medications. Ordered: Office Visit Level 4 Est 81710 Insomnia patient will try melatonin again at a dose around 3-6 mg. Ordered: Office Visit Level 4 Est 54986 Obstructive sleep apnea, adult Ordered: Office Visit Level 4 Est 76281 Orders: furosemide, 20 mg 1 tabs, Oral, Daily, # 90 tabs, 3 Refill(s), Pharmacy: [facility] [id number], 1 tabs Oral Daily lisinopril, 5 mg 1 tabs, Oral, Daily, # 90 tabs, 3 Refill(s), Pharmacy: [facility], 1 tabs Oral Daily
--- OUTSIDE RECORDS SUMMARY | 2016-11-04 21:07 | External Medical Summary | Referral Summary ---
:1925 Author Organization [facility] Address [address] [place] [address] Care Team Providers Name Role Phone Shelly Rhonda Gonzalez Primary Care Physician Encounter [facility] [id number] Date(s): 07/31/14 - 07/31/[address] [facility] [address] [place] [address] [place] Discharge Diagnosis: Moderate mitral regurgitation Discharge Diagnosis: Hypertension Discharge Diagnosis: Other Nonspecific Abnormal Finding of Lung Field Discharge Diagnosis: Chronic rhinitis Discharge Diagnosis: Pulmonary hypertension Discharge Diagnosis: Diastolic dysfunction Discharge Diagnosis: Cough Discharge Diagnosis: Bradycardia Discharge Disposition: 01-Home or Self Care Attending Physician: Jericho Carrero MD Admitting Physician: Jericho Carrero MD Referring Physician: Jericho Carrero MD Vital Signs Most recent to oldest [Reference Range]: 1 Peripheral Pulse Rate [60-100 bpm] 48 bpm *LOW* (07/31/14 12:40 PM) Respiratory Rate [14-20 br/min] 12 br/min *LOW* (07/31/14 12:40 PM) Blood Pressure [90-140/60-90 mmHg] 141/78 mmHg *HI* (07/31/14 12:40 PM) SpO2 96 % [...] Daily, # 90 tabs, 3 Refill(s), Pharmacy: [facility] 79229, 1 tabs OralDaily Start Date: 11/24/14 Status: Orderedlisinopril 5 mg oral tablet 5 mg 1 tabs, Oral, Daily, # 90 tabs, 3 Refill(s), Pharmacy: [facility] [id number], 1 tabs Oral Daily Start Date: 11/24/14 Status: Orderedlutein Oral, Daily, 0 Refill(s) Start Date: 09/16/13 Status: OrderedNasonex 50 mcg/inh nasal spray 100 mcg 2 sprays, Nasal, Daily, # 3 Each, 3 Refill(s), Pharmacy: [facility] [id number] Start Date: 08/07/14 Status: OrderedZyrTEC 10 mg, Oral, Daily, 0 Refill(s) Start Date: 02/06/14 Status: Ordered Results No data available for this section Immunizations Vaccine Date Refusal Reason tetanus/diphth/pertuss (Tdap) adult/adol 12/22/11 influenza virus vaccine, live 11/24/12 influenza virus vaccine, live 12/22/11 pneumococcal 13-valent conjugate vaccine1 08/07/14 pneumococcal 23-polyvalent vaccine 10/18/08 zoster vaccine live 08/24/09 1Result Comment: GIVEN BY Senthil DAVIS RNsynthetic filament extruder Procedure Date Related Diagnosis Body Site Breast biopsy and related procedures1 1990 Appendectomy2 1972 Hysterectomy3 1972 Tonsillectomy4 193 Cataract extraction [id number] Social History Social History Type Response Smoking [...]
--- OUTSIDE RECORDS SUMMARY | 2016-11-04 21:07 | External Medical Summary | Referral Summary ---
:1925 Author Organization [facility] Address [address] [place] [address] [place] [address] Care Team Providers Name Role Phone Rhonda Bravo Primary Care Physician Encounter [facility] Date(s): 08/18/14 - 08/18/14 [facility] [place] [address] [place] Discharge Diagnosis: Hypertension Discharge Diagnosis: Bradycardia Discharge Disposition: 01-Home or Self Care Attending Physician: Luz Benjamin APRN Admitting Physician: Luz Benjamin APRN Vital Signs Most recent to oldest [Reference Range]: 1 Temperature Tympanic [36.6-38.1 degC] 36.7 degC (08/18/14 11:01 AM) Peripheral Pulse Rate [60-100 bpm] 80 bpm (08/18/14 11:01 AM) Respiratory Rate [14-20 br/min] 17 br/min (08/18/14 11:01 AM) Blood Pressure [90-140/60-90 mmHg] 140/88 mmHg (08/18/14 11:01 AM) Problem List Condition Effective [...] Daily, # 90 tabs, 3 Refill(s), Pharmacy: [facility] 62547, 1 tabs OralDaily Start Date: 11/24/14 Status: Orderedlisinopril 5 mg oral tablet 5 mg 1 tabs, Oral, Daily, # 90 tabs, 3 Refill(s), Pharmacy: [facility] 15569, 1 tabs Oral Daily Start Date: 11/24/14 Status: Orderedlutein Oral, Daily, 0 Refill(s) Start Date: 09/16/13 Status: OrderedNasonex 50 mcg/inh nasal spray 100 mcg 2 sprays, Nasal, Daily, # 3 Each, 3 Refill(s), Pharmacy: [facility] 69802 Start Date: 08/07/14 Status: OrderedZyrTEC 10 mg, Oral, Daily, 0 Refill(s) Start Date: 02/06/14 Status: Ordered Results No data available for this section Immunizations Vaccine Date Refusal Reason tetanus/diphth/pertuss (Tdap) adult/adol 12/22/11 influenza virus vaccine, live 11/24/12 influenza virus vaccine, live 12/22/11 pneumococcal 13-valent conjugate vaccine1 08/07/14 pneumococcal 23-polyvalent vaccine 10/18/08 zoster vaccine live 08/24/09 1Result Comment: GIVEN BY Senthil DAVIS RNlouver mortiser operator Procedure Date Related Diagnosis Body Site Breast biopsy and related procedures1 1990 Appendectomy2 1973 Hysterectomy3 1973 Tonsillectomy4 193 Cataract extraction [id number] Social History Social History Type Response Smoking Status Former smoker; Type: Cigarettes; Number of years: 41 1Quit in 1961 Assessment and Plan Extracted from: Title: Ambulatory Patient Education Author: Luz Benjamin APRN Date: Family Medicine Bradycardia Bradycardia is a term [...] the muscle of the heart, telling the hear t muscle when to beat (contract ). The electrical signal travels from the upper parts of the heart (atria ) through the AV node (atrioventricular node ), to the lower chambers of the heart (ventricles ) . The ventricles squeeze, pumping the blood from [...] Released: 11/08/2002 Document Revised: 05/10/2012 Document Reviewed: 10/04/2008 [facility] Patient Information [address] [employer] [facility]. No follow up information was provided. Extracted from: Title: Office Visit Note Author: Luz Benjamin APRN Date: 08/18/14 Assessment/Plan 1.Hypertension add lisinopril 5mg daily. RTC in 1 week for a recheck. Check bp 3-4 times weekly and prn. Bring BP cuff to next appt. Bradycardia resolved. Orders: lisinopril, See Instructions, 1 TABS ORAL DAILY, # 30 tabs, eRx: [facility] [id number], 1 TABS ORAL DAILY
--- OUTSIDE RECORDS SUMMARY | 2016-11-04 21:07 | External Medical Summary | Referral Summary ---
:1925 Author Care Team Providers Name Role Phone Rhonda Bravo Primary Care Physician Encounter [facility] [id number] Date(s): 06/28/14 - 06/28/14 [facility] [place] [address] [place], [place] [address] Discharge Diagnosis: Chest pain Discharge [...] IBS(Confirmed) Active Ear infection(Confirmed) Active Insomnia(Confirmed) Active Osteopenia(Confirmed) Active Pneumonia(Confirmed) Resolved Speech problem(Confirmed) Active Tension headache(Confirmed) Resolved Chicken pox(Confirmed) Active Allergies, Adverse Reactions, Alerts Substance Reaction Severity Status clindamycin Active penicillin Unknown Active Medications Aleve 220 mg oral tablet 1 tabs, Oral, q12hr, 0 Refill(s) Start Date: 09/13/13 Status: OrderedLasix 40 mg oral tablet See Instructions, TAKE 1 TABLET BY ORAL ROUTE EVERY DAY, # 90 unknown unit, eRx : [facility] [address]12, TAKE 1 TABLET BY ORAL ROUTE EVERY DAY Special Instructions: TAKE 1 TABLET BY ORAL ROUTE EVERY DAY Start Date: 06/21/14 Status: Orderedlutein Oral, Daily, 0 Refill(s) Start Date: 09/16/13 Status: OrderedMetoprolol Tartrate 50 mg oral tablet 1 tabs, Oral, Daily, # 90 tabs, 2 Refill(s), Pharmacy: [facility] 64484, 1 tabs Oral Daily Start Date: 04/03/14 Status: OrderedZyrTEC 10 mg, Oral, Daily, 0 [...] 1973 Hysterectomy3 1973 Tonsillectomy4 193 Cataract extraction [id number] Social History Social History Type Response Smoking Status Former smoker; Type: Cigarettes; Number of years: 41 1Quit in 1961 Assessment and Plan Future Scheduled TestsReferralReturn to Clinic 11/15/13 1:05 PM Referrals to Other Providers Referred by: Loretta Carrero MD
--- OUTSIDE RECORDS SUMMARY | 2016-11-04 21:07 | External Medical Summary | Referral Summary ---
:1925 Author Organization [facility] Address [address] [place] [address] Care Team Providers Name Role Phone Rhonda Bravo Primary Care Physician Encounter [facility] [id number] Date(s): 06/28/14 - 06/28/14 [facility] [address] [place] [address] [place] Discharge Diagnosis: Chest pain Discharge Diagnosis: OTHER [...] Daily, # 90 tabs, 3 Refill(s), Pharmacy: [facility] 09387, 1 tabs OralDaily Start Date: 11/24/14 Status: Orderedlisinopril 5 mg oral tablet 5 mg 1 tabs, Oral, Daily, # 90 tabs, 3 Refill(s), Pharmacy: [facility] 57254, 1 tabs Oral Daily Start Date: 11/24/14 Status: Orderedlutein Oral, Daily, 0 Refill(s) Start Date: 09/16/13 Status: OrderedNasonex 50 mcg/inh nasal spray 100 mcg 2 sprays, Nasal, Daily, # 3 Each, 3 Refill(s), Pharmacy: [facility] 72508 Start Date: 08/07/14 Status: OrderedZyrTEC 10 mg, Oral, Daily, 0 Refill(s) Start Date: 02/06/14 Status: Ordered Results No data available for this section Immunizations Vaccine Date Refusal Reason tetanus/diphth/pertuss (Tdap) adult/adol 12/22/11 influenza virus vaccine, live 11/24/12 influenza virus vaccine, live 12/22/11 pneumococcal 13-valent conjugate vaccine1 08/07/14 pneumococcal 23-polyvalent vaccine 10/18/08 zoster vaccine live 08/24/09 1Result Comment: GIVEN BY Senthil DAVIS RNpackage car driver Procedure Date Related Diagnosis Body Site Breast biopsy and related procedures1 1990 Appendectomy2 1973 Hysterectomy3 1973 Tonsillectomy4 193 Cataract extraction [id number] Social History Social History Type Response Smoking Status Former smoker; Type: Cigarettes; Number of years: 41 1Quit in 1961 Assessment and Plan No data available for this section
--- OUTSIDE RECORDS SUMMARY | 2016-11-04 21:07 | External Medical Summary | Referral Summary ---
:1925 Author Organization [facility] Address [address] [place] [address] [place] [address] Care Team Providers Name Role Phone Rhonda Bravo Primary Care Physician Encounter VC Date(s): 08/15/14 - 08/15/14 [facility] [address] [place] [phone] Discharge Diagnosis: Anemia Discharge Diagnosis: Bradycardia Discharge Diagnosis: Hypertension Discharge Disposition: 01-Home or Self Care Attending Physician: Luz Benjamin APRN Admitting Physician: Luz Benjamin APRN Vital Signs Most recent to oldest [Reference Range]: 1 Temperature Tympanic [36.6-38.1 degC] 36.8 degC (08/15/14 9:06 AM) Peripheral Pulse Rate [60-100 bpm] 60 bpm (08/15/14 9:06 AM) Respiratory Rate [14-20 br/min] 16 br/min (08/15/14 9:06 AM) Blood Pressure [90-140/60-90 mmHg] 140/70 mmHg (08/15/14 9:06 AM) SpO2 97 % (08/15/14 [...] Daily, # 90 tabs, 3 Refill(s), Pharmacy: [facility] 60217, 1 tabs OralDaily Start Date: 11/24/14 Status: Orderedlisinopril 5 mg oral tablet 5 mg 1 tabs, Oral, Daily, # 90 tabs, 3 Refill(s), Pharmacy: [facility] 68614, 1 tabs Oral Daily Start Date: 11/24/14 Status: Orderedlutein Oral, Daily, 0 Refill(s) Start Date: 09/16/13 Status: OrderedNasonex 50 mcg/inh nasal spray 100 mcg 2 sprays, Nasal, Daily, # 3 Each, 3 Refill(s), Pharmacy: [facility] [id number] Start Date: 08/07/14 Status: OrderedZyrTEC 10 mg, Oral, Daily, 0 Refill(s) Start Date: 02/06/14 Status: Ordered Results Hematology Most recent to oldest [Reference Range]: 1 WBC [4.8-10.8 10*3/uL] 5.7 10*3/uL (08/15/14 9:57 AM) RBC [4.00-5.20 10*6/uL] 4.04 10*6/uL (08/15/14 9:57 AM) Hgb [12.0-16.0 gm/dL] 12.8 gm/dL (08/15/14 9:57 AM) Hct [37.0-47.0 %] 39.2 % (08/15/14 9:57 AM) MCV [82.0-99.0 fL] 97.0 fL (08/15/14 9:57 AM) MCH [27.0-32.0 pg] 31.7 pg (08/15/14 9:57 AM) MCHC [32.0-36.0 gm/dL] 32.7 gm/dL (08/15/14 9:57 AM) RDW [11.5-14.5 %] 13.0 % (08/15/14 9:57 AM) Platelet [150-400 10*3/uL] 173 10*3/uL (08/15/14 9:57 AM) MPV [8.8-14.8 fL] 11.6 fL (08/15/14 9:57 AM) Immature Granulocytes [0.0-1.0 %] 0.2 % (08/15/14 9:57 AM) Neutrophils [51-75 %] 62 % (08/15/14 9:57 AM) Lymphocytes [20-46 %] 23 % (08/15/14 9:57 AM) Monocytes [4-11 %] 11 % (08/15/14 9:57 AM) Eosinophils [0-4 %] 4 % (08/15/14 9:57 AM) Basophils [0-2 %] 1 % (08/15/14 9:57 AM) Neutro Absolute [1.90-7.00 10*3] 3.50 10*3 (08/15/14 9:57 AM) Lymph Absolute [0.80-3.30 10*3] 1.28 10*3 (08/15/14 9:57 AM) Bandera Absolute [0.30-1.00 10*3] 0.63 10*3 (08/15/14 9:57 AM) Eos Absolute [0.00-0.50 10*3] 0.20 10*3 (08/15/14 9:57 AM) Baso Absolute [0.00-0.20 10*3] 0.05 10*3 (08/15/14 9:57 AM) Chemistry Most recent to oldest [Reference Range]: 1 Sodium Lvl [135-144 mEq/L] 142 mEq/L (08/15/14 9:57 AM) Potassium Lvl [3.5-5.2 mEq/L] 4.3 mEq/L (08/15/14 9:57 AM) Chloride [99-111 mEq/L] 105 mEq/L (08/15/14 9:57 AM) CO2 [22-31 mEq/L] 32 mEq/L *HI* (08/15/14 9:57 AM) AGAP [3-20] 5 (08/15/14 9:57 AM) BUN [10-20 mg/dL] 22 mg/dL *HI* (08/15/14 9:57 AM) Glucose Lvl [70-99 mg/dL] 96 mg/dL (08/15/14 9:57 AM) Creatinine Lvl [0.57-1.11 mg/dL] 0.72 mg/dL (08/15/14 9:57 AM) eGFR [>60 mL/min] >60 mL/min 1 (08/15/14 9:57 AM) Calcium Lvl [8.9-10.5 mg/dL] 9.4 mg/dL (08/15/14 9:57 AM) TSH [0.35-4.94] 1.59 (08/15/14 9:57 AM) 1Result Comment: Multiply eGFR results by 1.21 for race. Immunizations Vaccine Date Refusal Reason tetanus/diphth/pertuss (Tdap) adult/adol 12/22/11 influenza virus vaccine, live 11/24/12 influenza virus vaccine, live 12/22/11 pneumococcal 13-valent conjugate vaccine1 08/07/14 pneumococcal 23-polyvalent vaccine 10/18/08 zoster vaccine live 08/24/09 1Result Comment: GIVEN BY Senthil DAVIS RNhog buyer Procedure Date Related Diagnosis Body Site Breast biopsy and related procedures1 1990 Appendectomy2 1972 Hysterectomy3 1972 Tonsillectomy4 1932 Cataract extraction [id number] Social History Social History Type Response Smoking [...] 11/08/2002 Document Revised: 05/10/2012 Document Reviewed: 10/04/2008 [facility] 2014 [facility]. No follow up information was provided. [...]
--- OUTSIDE RECORDS SUMMARY | 2016-11-04 21:08 | External Medical Summary | Referral Summary ---
:1925 Author Organization [facility] Address [address] [place] [address] Care Team Providers Name Role Phone Shelly Rhonda Gonzalez Primary Care Physician Encounter VC Date(s): 03/24/16 - 03/24/16 [facility] [address] [place] [address]- [place] Discharge Diagnosis: Mitral prolapse Discharge Diagnosis: Mitral insufficiency Discharge Diagnosis: Fall Discharge Disposition: 01-Home or Self Care Attending Physician: Titus Storm MD Admitting Physician: Titus Storm MD Vital Signs Most recent to oldest [Reference Range]: 1 Peripheral Pulse Rate [60-100 bpm] 66 bpm (03/24/16 12:45 PM) Blood Pressure [90-140/60-90 mmHg] 122/80 mmHg (03/24/16 12:45 PM) Problem List Condition Effective Dates Status Health Status Informant Anemia(Confirmed) Active Arthritis(Confirmed) Active Cataracts(Confirmed) Resolved Skin Conditions(Confirmed) Active Fall(Confirmed) Active Heart murmur(Confirmed) Active Hyperlipidemia(Confirmed) Resolved Hypertension(Confirmed) Active IBS(Confirmed) Active Ear infection(Confirmed) Active Insomnia(Confirmed) Active Mitral insufficiency(Confirmed) Active Mitral prolapse(Confirmed) Active Obstructive sleep apnea, Active adult(Confirmed) Osteopenia(Confirmed) Active Pneumonia(Confirmed) Resolved Speech problem(Confirmed) Active Tension headache(Confirmed) Resolved Chicken pox(Confirmed) Active Allergies, Adverse Reactions, Alerts Substance Reaction Severity Status clindamycin Active HYDROcodone Nausea Active penicillin Unknown Active Medications amcinonide 0.1% topical cream 1 keira, Topical, BID, itchy spot, # 15 g, 0 Refill(s), Pharmacy: [facility] Start Date: 12/07/15 Status: Orderedclobetasol 0.05% topical cream See Instructions, apply to itchy spots of areas of scalp, # 15 g, 0 Refill(s), Pharmacy: [facility] [address]684 Start Date: 12/08/15 Status: OrderedLasix 20 mg oral tablet See Instructions, 1 tabs Oral every other day, # 30 Each, 0 Refill(s), Pharmacy : [facility] 07586, 1 tabs Oral every other day Start Date: 02/01/16 Status: Orderedlosartan 25 mg oral tablet See Instructions, TAKE 1 TABLET BY MOUTH DAILY, # 30 Each, 7 Refill(s), Pharmacy : [facility] 16049, TAKE 1 TABLET BY MOUTH DAILY Start Date: 02/14/16 Status: Orderedlutein Oral, Daily, 0 Refill(s) Start Date: 09/16/13 Status: OrderedNasonex 50 mcg/inh nasal spray 100 mcg 2 sprays, Nasal, Daily, # 3 Each, 3 Refill(s), Pharmacy: [facility] 81004 Start Date: 08/07/14 Status: OrderedZyrTEC 10 mg, [...] Recorded 1Result Comment: GIVEN BY Senthil DAVIS RNprofessional architect Procedure Date Related Diagnosis Body Site Breast biopsy and related procedures1 1990 Appendectomy2 1972 Hysterectomy3 1972 Tonsillectomy4 1932 Cataract extraction [id number] Social History Social History Type Response Smoking [...]
--- OUTSIDE RECORDS SUMMARY | 2016-11-04 21:08 | External Medical Summary | Referral Summary ---
:1925 Author Organization [facility] [place] Address [address], [facility] [address] [place] [address] Care Team Providers Name Role Phone Rhonda Bravo Primary Care Physician Encounter VC Date(s): 07/27/14 - 07/27/14 [facility] [place], [place] [address], [facility] [address] [place] [address]- Discharge Diagnosis: Obstructive sleep apnea, adult Discharge Disposition: 01-Home or Self Care Attending Physician: Edwardo Barnes MD Admitting Physician: Edwardo Barnes MD Vital Signs Most recent to oldest [Reference Range]: 1 Peripheral Pulse Rate [60-100 bpm] 47 bpm *LOW* (07/27/14 1:03 PM) Blood Pressure [90-140/60-90 mmHg] 140/80 mmHg (07/27/14 1:03 PM) SpO2 95 % (07/27/14 [...] Daily, # 90 tabs, 3 Refill(s), Pharmacy: [facility]4825, 1 tabs OralDaily Start Date: 11/24/14 Status: Orderedlisinopril 5 mg oral tablet 5 mg 1 tabs, Oral, Daily, # 90 tabs, 3 Refill(s), [facility], 1 tabs Oral Daily Start Date: 11/24/14 Status: Orderedlutein Oral, Daily, 0 Refill(s) Start Date: 09/16/13 Status: OrderedNasonex 50 mcg/inh nasal spray 100 mcg 2 sprays, Nasal, Daily, # 3 Each, 3 Refill(s), [facility]: [facility] [address] Start Date: 08/07/14 Status: OrderedZyrTEC 10 mg, Oral, Daily, 0 Refill(s) Start Date: 02/06/14 Status: Ordered Results No data available for this section Immunizations Vaccine Date Refusal Reason tetanus/diphth/pertuss (Tdap) adult/adol 12/22/11 influenza virus vaccine, live 11/24/12 influenza virus vaccine, live 12/22/11 pneumococcal 13-valent conjugate vaccine1 08/07/14 pneumococcal 23-polyvalent vaccine 10/18/08 zoster vaccine live 08/24/09 1Result Comment: GIVEN BY Senthil DAVIS RNworkers' compensation claims supervisor Procedure Date Related Diagnosis Body Site Breast biopsy and related procedures1 1990 Appendectomy2 1972 Hysterectomy3 1972 Tonsillectomy4 1932 Cataract extraction [id number] Social History Social History Type Response Smoking [...] as driving, and she has been doing t hat. I brought up the possibility of donating her machine to [facility], and she agrees to do so. No return visit is scheduled. Extracted from: Title: CPAP donated S9 AutoSet/H5i Author: Cielo Christianson S LOOP TACKER Date: Patient donated her cpap and humidifier today. She no longer needs to use cpap per Dr Barnes.
--- OUTSIDE RECORDS SUMMARY | 2016-11-04 21:08 | External Medical Summary | Referral Summary ---
:1925 Author Organization [facility] Address [address], [facility] [address] [place] [address] Care Team Providers Name Role Phone Rhonda Bravo Primary Care Physician Encounter VC Date(s): 07/27/14 - 07/27/14 [facility] [place], [place] [address], [facility] [address] [place], [place] [address] Discharge Diagnosis: Obstructive sleep apnea, [...] Daily, # 90 tabs, 3 Refill(s), [facility]acy: [facility], 1 tabs OralDaily Start Date: 11/24/14 Status: Orderedlisinopril 5 mg oral tablet 5 mg 1 tabs, Oral, Daily, # 90 tabs, 3 Refill(s), [facility], 1 tabs Oral Daily Start Date: 11/24/14 Status: Orderedlutein Oral, Daily, 0 Refill(s) Start Date: 09/16/13 Status: OrderedNasonex 50 mcg/inh nasal spray 100 mcg 2 sprays, Nasal, Daily, # 3 Each, 3 Refill(s), [facility] [address] Start Date: 08/07/14 Status: OrderedZyrTEC 10 mg, Oral, Daily, 0 Refill(s) Start Date: 02/06/14 Status: Ordered Results No data available for this section Immunizations Vaccine Date Refusal Reason tetanus/diphth/pertuss (Tdap) adult/adol 12/22/11 influenza virus vaccine, live 11/24/12 influenza virus vaccine, live 12/22/11 pneumococcal 13-valent conjugate vaccine1 08/07/14 pneumococcal 23-polyvalent vaccine 10/18/08 zoster vaccine live 08/24/09 1Result Comment: GIVEN BY Senthil DAVIS RNclothing worker Procedure Date Related Diagnosis Body Site Breast biopsy and related procedures1 1990 Appendectomy2 1972 Hysterectomy3 1972 Tonsillectomy4 1932 Cataract extraction [id number] Social History Social History Type Response Smoking [...] donated S9 AutoSet/H5i Author: Cielo Christianson S REPAIRER HAIRSPRING Date: Patient donated her cpap and humidifier today. She no longer needs to use cpap per Dr Barnes.
--- OUTSIDE RECORDS SUMMARY | 2016-11-04 21:08 | External Medical Summary | Referral Summary ---
:1925 Author Organization [facility] [place] Address [address], [facility] [address] [place] [address] Care Team Providers Name Role Phone Rhonda Bravo Primary Care Physician Encounter VC Date(s): 07/27/14 - 07/27/14 [facility] [place], [place] [address], [facility] [address] [place] [address]- Discharge Diagnosis: Obstructive sleep apnea, adult Discharge [...] Daily, # 90 tabs, 3 Refill(s), Pharmacy: [facility] 54656, 1 tabs OralDaily Start Date: 11/24/14 Status: Orderedlisinopril 5 mg oral tablet 5 mg 1 tabs, Oral, Daily, # 90 tabs, 3 Refill(s), Pharmacy: [facility] 68[facility], 1 tabs Oral Daily Start Date: 11/24/14 Status: Orderedlutein Oral, Daily, 0 Refill(s) Start Date: 09/16/13 Status: OrderedNasonex 50 mcg/inh nasal spray 100 mcg 2 sprays, Nasal, Daily, # 3 Each, 3 Refill(s), Pharmacy: [facility] [address] Start Date: 08/07/14 Status: OrderedZyrTEC 10 mg, Oral, Daily, 0 Refill(s) Start Date: 02/06/14 Status: Ordered Results No data available for this section Immunizations Vaccine Date Refusal Reason tetanus/diphth/pertuss (Tdap) adult/adol 12/22/11 influenza virus vaccine, live 11/24/12 influenza virus vaccine, live 12/22/11 pneumococcal 13-valent conjugate vaccine1 08/07/14 pneumococcal 23-polyvalent vaccine 10/18/08 zoster vaccine live 08/24/09 1Result Comment: GIVEN BY Senthil DAVIS RNengraver machine Procedure Date Related Diagnosis Body Site Breast biopsy and related procedures1 1990 Appendectomy2 1972 Hysterectomy3 1972 Tonsillectomy4 1932 Cataract extraction [id number] Social History Social History Type Response Smoking Status Former smoker; Type: Cigarettes; Number of years: 41 1Quit in 1961 Assessment and Plan Extracted from: Title: CPAP donated S9 AutoSet/H5i Author: Cielo Christianson BUNDLE HELPER Date: Patient donated her cpap and humidifier [...]
--- OUTSIDE RECORDS SUMMARY | 2016-11-04 21:08 | External Medical Summary | Referral Summary ---
:1925 Author Organization [facility] Address [address] [place] [address] [place] [address] Care Team Providers Name Role Phone Rhonda Bravo Primary Care Physician Encounter [facility] [id number] Date(s): 11/24/14 - 11/24/14 [facility] [place] [address] [place] Discharge Diagnosis: [...] Daily, # 90 tabs, 3 Refill(s), Pharmacy: [facility] 13812, 1 tabs OralDaily Start Date: 11/24/14 Status: Orderedlosartan 25 mg oral tablet See Instructions, 1 TABS ORAL DAILY, # 30 tabs, 2 Refill(s), [facility]: [facility] 83627, 1 TABSORAL DAILY Start Date: 03/20/15 Status: Orderedlutein Oral, Daily, 0 Refill(s) Start Date: 09/16/13 Status: OrderedNasonex 50 mcg/inh nasal spray 100 mcg 2 sprays, Nasal, Daily, # 3 Each, 3 Refill(s), Pharmacy: [facility] [address] Start Date: 08/07/14 Status: OrderedZyrTEC 10 mg, Oral, Daily, 0 Refill(s) Start Date: 02/06/14 Status: Ordered Results No data available for this section Immunizations Vaccine Date Refusal Reason tetanus/diphth/pertuss (Tdap) adult/adol 12/22/11 influenza virus vaccine, live 11/24/12 influenza virus vaccine, live 12/22/11 pneumococcal 13-valent conjugate vaccine1 08/07/14 pneumococcal 23-polyvalent vaccine 10/18/08 zoster vaccine live 08/24/09 1Result Comment: GIVEN BY Senthil DAVIS sleeping room cleaner Procedure Date Related Diagnosis Body Site Breast biopsy and related procedures1 1990 Appendectomy2 1973 Hysterectomy3 1973 Tonsillectomy4 193 Cataract extraction [id number] Social History Social History Type Response Smoking Status Former smoker; Type: Cigarettes; Number of years: 41 1Quit in 1961 Assessment and Plan Extracted from: Title: Ambulatory Patient Education Author: Paula Hyawood DO Date: 11/24/14 Behavioral Health Insomnia Insomnia is frequent trouble falling and/or staying asleep. Insomnia can be a custodial problem or a short term problem. Both are common. Insomnia can be a short term problem when the wakefulness is rel ated to a certain stress or worry. FPC insomnia is often related to ongoing stress [...] are generally not recommended for lengthy use. Houi-fwz-sprwwov sleep medicines are not recommended for lengthy [...] Document Reviewed: 03/15/2008 ExitCare Patient Information 2015 [employer]. This information is not intended to replace advice given to you by your health care provider. Make sure you discuss any questions you have with your health care provider. No follow up information was provided. Extracted from: Title: Office Visit Note Author: Paula Haywood DO Date: 11/24/14 Assessment/Plan Hypertension stable, continue current medications. Ordered: Office Visit Level 4 Est 80116 Insomnia patient will try melatonin again at a dose around 3-6 mg. Ordered: Office Visit Level 4 Est 81415 Obstructive sleep apnea, adult Ordered: Office Visit Level 4 Est 15996 Orders: furosemide, 20 mg 1 tabs, Oral, Daily, # 90 tabs, 3 Refill(s), Pharmacy: [facility] 46171, 1 tabs Oral Daily lisinopril, 5 mg 1 tabs, Oral, Daily, # 90 tabs, 3 Refill(s), Pharmacy: [facility] 61605, 1 tabs Oral Daily
--- OUTSIDE RECORDS SUMMARY | 2016-11-04 21:08 | External Medical Summary | Referral Summary ---
:1925 Author Organization [facility] [place] [address] Care Team Providers Name Role Phone Rhonda Bravo Primary Care Physician Encounter VC Date(s): 08/07/14 - 08/07/14 [facility] [address] [place] [address] [place] Discharge Diagnosis: Mitral regurgitation Discharge Diagnosis: Neck pain Discharge Diagnosis: Leg pain Discharge Diagnosis: Immunization due Discharge Disposition: 01-Home or Self Care Attending Physician: Rhonda Bravo MD Admitting Physician: Rhonda Bravo MD Vital Signs Most recent to oldest [Reference Range]: 1 Peripheral Pulse Rate [60-100 bpm] 64 bpm (08/07/14 8:47 AM) Respiratory Rate [14-20 br/min] 16 br/min (08/07/14 8:47 AM) Blood Pressure [90-140/60-90 mmHg] 158/80 mmHg *HI* (08/07/14 8:47 AM) Problem List Condition [...] Daily, # 90 tabs, 3 Refill(s), Pharmacy: [facility] 22007, 1 tabs OralDaily Start Date: 11/24/14 Status: Orderedlisinopril 5 mg oral tablet 5 mg 1 tabs, Oral, Daily, # 90 tabs, 3 Refill(s), Pharmacy: [facility] [address]3079, 1 tabs Oral Daily Start Date: 11/24/14 Status: Orderedlutein Oral, Daily, 0 Refill(s) Start Date: 09/16/13 Status: OrderedNasonex 50 mcg/inh nasal spray 100 mcg 2 sprays, Nasal, Daily, # 3 Each, 3 Refill(s), Pharmacy: [facility] 38361 Start Date: 08/07/14 Status: OrderedZyrTEC 10 mg, Oral, Daily, 0 Refill(s) Start Date: 02/06/14 Status: Ordered Results No data available for this section Immunizations Vaccine Date Refusal Reason tetanus/diphth/pertuss (Tdap) adult/adol 12/22/11 influenza virus vaccine, live 11/24/12 influenza virus vaccine, live 12/22/11 pneumococcal 13-valent conjugate vaccine1 08/07/14 pneumococcal 23-polyvalent vaccine 10/18/08 zoster vaccine live 08/24/09 1Result Comment: GIVEN BY Senthil DAVIS RNnight nurse Procedure Date Related Diagnosis Body Site Breast biopsy and related procedures1 1990 Appendectomy2 1972 Hysterectomy3 1972 Tonsillectomy4 1932 Cataract extraction [id number] Social History Social History Type Response Smoking [...] of the heart. When the large muscular hammad tricle contracts to pump blood, the mitral valve keeps that blood from flowing backward and back into the atrium. If there is too much regurgitation, the heart has to work harder. This eventually can ca use heart failure. When your heart goes into [...] heartbeat. Upon discharge from this location, weigh yours elf after arriving home. Record your weight at the same time every day as this will provide a record of your progress. As you get better, your weight will usually go down. Follow a low sodium (low salt ) diet. You may notice that you get [...] heart surgery, but does increase a with ag e and other medical problems. Elderly patients that are otherwise healthy usually do well with valve replacement surgery. A cardiac catheterization is usually done prior to valve surgery unless the patient is very young. This is done to check the health of coronary arteries. If there are blockages, a bypass can be don e while the chest is open for the [...] it if possible. Pace your activities and clara id shortness of breath or chest pain. Plan activities for at least an hour after meals or before eating. This allows your body to handle one activity at a time. Your caregiver can help advise you for activities. Diet--- Maintain a low salt diet or as directed by your caregiver and eat a heart healthy diet. Get diet information from your caregiver or process design engineer. Remove your salt shaker and avoid adding salt to you foods. Measure the amounts of fluids you take in per day in cups and record these amounts. Discharge Medications--- You may have been prescribed an DORY inhibitor or a beta primo to take for your heart failure. Take either as directed as this improves your heart function and your surviv al. Ask your caregiver if being on statins (cholesterol lowering drugs) would be helpful. Weight Monitoring---Weigh yourself today. When you get home, compare it to your scale and record your weight. Weigh twice per day and record these weights and try to weigh at the same time every da y. It is best to weigh first thing [...] [facility] Record these values and bring them with you for your clinic visits. Notify your ca regiver if you become dizzy or lightheaded upon standing up. Be familiar with your medications--- If you have trouble remembering when you took them, write down times or set your medications out in advance for the day or the week to avoid problems. If you ar e on medications and do not remember if you have taken your medication, just skip it for that day unless your caregiver advises you otherwise. If you are on a diuretic (water pill), take these in the m orning so you are not up all night [...] than better. Call emergency services (911 in [place] for immediate care. DAILY PATH TO QUALITY [...] Released: 05/06/2005 Document Revised: 05/10/2012 Document Reviewed: 04/14/2008 [facility] Patient Information 2014 [employer]. No follow up information was provided. Extracted [...] Each, 3 Refill(s), Pharmacy: [facility] [address]
--- OUTSIDE RECORDS SUMMARY | 2016-11-04 21:08 | External Medical Summary | Referral Summary ---
:1925 Author [facility] Address [address] [place] [address] [place] [id number] Care Team Providers Name Role Phone Rhonda Bravo Primary Care Physician Encounter [facility] Date(s): 08/25/14 - 08/25/14 [facility] [place] [phone] Discharge Diagnosis: HTN (hypertension) Discharge Disposition: 01-Home or Self Care Attending Physician: Luz Benjamin APRN Admitting Physician: Luz Benjamin APRN Vital Signs Most recent to oldest [Reference Range]: 1 Temperature Tympanic [36.6-38.1 degC] 36.7 degC (08/25/14 9:23 AM) Peripheral Pulse Rate [60-100 bpm] 80 bpm (08/25/14 9:23 AM) Respiratory Rate [14-20 br/min] 17 br/min (08/25/14 9:23 AM) Blood Pressure [90-140/60-90 mmHg] 134/72 mmHg (08/25/14 9:23 AM) Problem List Condition Effective [...] Daily, # 90 tabs, 3 Refill(s), Pharmacy: [facility] [id number], 1 tabs OralDaily Start Date: 11/24/14 Status: Orderedlisinopril 5 mg oral tablet 5 mg 1 tabs, Oral, Daily, # 90 tabs, 3 Refill(s), Pharmacy: [facility] [id number], 1 tabs Oral Daily Start Date: 11/24/14 Status: Orderedlutein Oral, Daily, 0 Refill(s) Start Date: 09/16/13 Status: OrderedNasonex 50 mcg/inh nasal spray 100 mcg 2 sprays, Nasal, Daily, # 3 Each, 3 Refill(s), Pharmacy: [facility] [id number] Start Date: 08/07/14 Status: OrderedZyrTEC 10 mg, Oral, Daily, 0 Refill(s) Start Date: 02/06/14 Status: Ordered Results Chemistry Most recent to oldest [Reference Range]: 1 Sodium Lvl [135-144 mEq/L] 142 mEq/L (08/25/14 9:45 AM) Potassium Lvl [3.5-5.2 mEq/L] 4.7 mEq/L (08/25/14 9:45 AM) Chloride [99-111 mEq/L] 102 mEq/L (08/25/14 9:45 AM) CO2 [22-31 mEq/L] 31 mEq/L (08/25/14 9:45 AM) AGAP [3-20] 9 (08/25/14 9:45 AM) BUN [10-20 mg/dL] 20 mg/dL (08/25/14 9:45 AM) Glucose Lvl [70-99 mg/dL] 93 mg/dL (08/25/14 9:45 AM) Creatinine Lvl [0.57-1.11 mg/dL] 0.83 mg/dL (08/25/14 9:45 AM) eGFR [>60 mL/min] >60 mL/min 1 (08/25/14 9:45 AM) Calcium Lvl [8.9-10.5 mg/dL] 9.5 mg/dL (08/25/14 9:45 AM) 1Result Comment: Multiply eGFR results by 1.21 for race. Immunizations Vaccine Date Refusal Reason tetanus/diphth/pertuss (Tdap) adult/adol 12/22/11 influenza virus vaccine, live 11/24/12 influenza virus vaccine, live 12/22/11 pneumococcal 13-valent conjugate vaccine1 08/07/14 pneumococcal 23-polyvalent vaccine 10/18/08 zoster vaccine live 08/24/09 1Result Comment: GIVEN BY Senthil DAVIS RNenvironmental protection officer Procedure Date Related Diagnosis Body Site Breast biopsy and related procedures1 1990 Appendectomy2 1972 Hysterectomy3 1972 Tonsillectomy4 1932 Cataract extraction [id number] Social History Social History Type Response Smoking Status Former smoker; Type: Cigarettes; Number of years: 41 1Quit in 1961 Assessment and Plan Extracted from: Title: Ambulatory Patient Education Author: Luz Benjamin APRN Date: Family Medicine Hypertension Hypertension is another name [...] Released: 08/04/2008 Document Revised: 05/10/2012 Document Reviewed: 08/04/2008 ExitCare Patient Information 2014 [employer] [facility]. No follow up information was provided. Extracted from: Title: Office Visit Note Author: Luz Benjamin APRN Date: 08/25/14 Assessment/Plan HTN (hypertension) cont with addition of lisinopril. recheck in 2-3 months. lab work today. Ordered: Basic Metabolic Panel
--- OUTSIDE RECORDS SUMMARY | 2016-11-04 21:08 | External Medical Summary | Referral Summary ---
:1925 Author Organization [facility] Address [address] [place] [address] Care Team Providers Name Role Phone Rhonda Bravo Primary Care Physician Encounter [facility] [id number] Date(s): 08/15/14 - 08/15/14 [facility] [address] [place] [address]- [place] Discharge Disposition: 01-Home or [...] Daily, # 90 tabs, 3 Refill(s), Pharmacy: [facility] [id number], 1 tabs OralDaily Start Date: 11/24/14 Status: Orderedlisinopril 5 mg oral tablet 5 mg 1 tabs, Oral, Daily, # 90 tabs, 3 Refill(s), Pharmacy: [facility] [id number], 1 tabs Oral Daily Start Date: 11/24/14 Status: Orderedlutein Oral, Daily, 0 Refill(s) Start Date: 09/16/13 Status: OrderedNasonex 50 mcg/inh nasal spray 100 mcg 2 sprays, Nasal, Daily, # 3 Each, 3 Refill(s), Pharmacy: [id number] Start Date: 08/07/14 Status: OrderedZyrTEC 10 mg, Oral, Daily, 0 Refill(s) Start Date: 02/06/14 Status: Ordered Results No data available for this section Immunizations Vaccine Date Refusal Reason tetanus/diphth/pertuss (Tdap) adult/adol 12/22/11 influenza virus vaccine, live 11/24/12 influenza virus vaccine, live 12/22/11 pneumococcal 13-valent conjugate vaccine1 08/07/14 pneumococcal 23-polyvalent vaccine 10/18/08 zoster vaccine live 08/24/09 1Result Comment: GIVEN BY Senthil DAVIS RNfitness studies teacher Procedure Date Related Diagnosis Body Site Breast biopsy and related procedures1 1990 Appendectomy2 1972 Hysterectomy3 1972 Tonsillectomy4 1932 Cataract extraction [id number] Social History Social History Type Response Smoking Status Former smoker; Type: Cigarettes; Number of years: 41 1Quit in 1961 Assessment and Plan No data available for this section
--- OUTSIDE RECORDS SUMMARY | 2016-11-04 21:08 | External Medical Summary | Referral Summary ---
:1925 Author Organization [facility] Address [address] [place] [address] Care Team Providers Name Role Phone Rhonda Bravo Primary Care Physician Encounter [facility] [id number] Date(s): 03/20/15 - 03/20/15 [facility] [address] [place] [address] [place] Discharge Diagnosis: Insomnia Discharge Diagnosis: Cough Discharge Diagnosis: Mitral insufficiency Discharge Diagnosis: Essential hypertension Discharge Disposition: 01-Home or Self Care Attending Physician: Titus Storm MD Admitting Physician: Titus Storm MD Referring Physician: Rhonda Bravo MD Vital Signs Most recent to oldest [Reference Range]: 1 Peripheral Pulse Rate [60-100 bpm] 64 bpm (03/20/15 11:21 AM) Blood Pressure [90-140/60-90 mmHg] 130/80 mmHg (03/20/15 11:21 AM) Problem List Condition Effective [...] Daily, # 90 tabs, 3 Refill(s), Pharmacy: [id number], 1 tabs OralDaily Start Date: 11/24/14 Status: Orderedlosartan 25 mg oral tablet See Instructions, 1 TABS ORAL DAILY, # 30 tabs, 2 Refill(s), eRx: [facility] [id number], 1 TABSORAL DAILY Start Date: 03/20/15 Status: Orderedlutein Oral, Daily, 0 Refill(s) Start Date: 09/16/13 Status: OrderedNasonex 50 mcg/inh nasal spray 100 mcg 2 sprays, Nasal, Daily, # 3 Each, 3 Refill(s), Pharmacy: [id number] Start Date: 08/07/14 Status: OrderedZyrTEC 10 mg, Oral, Daily, 0 Refill(s) Start Date: 02/06/14 Status: Ordered Results No data available for this section Immunizations Vaccine Date Refusal Reason tetanus/diphth/pertuss (Tdap) adult/adol 12/22/11 influenza virus vaccine, live 11/24/12 influenza virus vaccine, live 12/22/11 pneumococcal 13-valent conjugate vaccine1 08/07/14 pneumococcal 23-polyvalent vaccine 10/18/08 zoster vaccine live 08/24/09 1Result Comment: GIVEN BY Senthil DAVIS RNengineering mgr Procedure Date Related Diagnosis Body Site Breast biopsy and related procedures1 1990 Appendectomy2 1972 Hysterectomy3 1972 Tonsillectomy4 1932 Cataract extraction [id number] Social History Social History Type Response Smoking Status Former smoker; Type: Cigarettes; Number of years: 41 1Quit in 1961 Assessment and Plan Extracted from: Title: Office Visit Note Author: Titus Storm MD Date: 03/20/15 Assessment/Plan 1.Cough Ordered: Return to Clinic 2.Mitral insufficiency Ordered: Return to Clinic 3.Essential hypertension Ordered: Return to Clinic 4.Insomnia Discussion: We reviewed her echo findings. Her mitral valve certainly doesn 't appear to be any worse and may [...] # 30 tabs, 2 Refill(s) , eRx: [id number], 1 TABS ORAL DAILY Referrals to Other Providers Referred by: Titus Storm MD
[2016-11-04] MEDS ORDERED: SALINE FLUSH 10ml SYRINGE ONE (21:18)
[2016-11-04] MEDS ORDERED: NS 0 ML ONE (21:18)
[2016-11-04] MEDS ORDERED: IOHEXOL 300mg/ml 100ml INJECTION ONE (21:18)
[2016-11-04] MEDS ORDERED: MORPHINE SULFATE 4 MG SYRINGE IVP PRN (22:37)
[2016-11-04] MEDS: NS 1,000 ML IV SCH (23:43)
[2016-11-04 23:54] VITALS: BMI 24.2
[2016-11-05] MEDS: METOCLOPRAMIDE 10mg/2ml INJECTION IVP PRN ×2 (00:13→07:52)
[2016-11-05] MEDS: SALINE FLUSH 10ml SYRINGE IVF PRN ×3 (00:14→10:51)
--- NOTE | 2016-11-05 00:43 | History & Physical Report ---
History of Present Illness Date: 11/05/16 Chief complaint: Nausea HPI: The pt states that she has been in good health lately but started developing nausea after eating some soup 3 days ago. Her symptoms started suddenly and worsening since onset. Today she woke up and started vomiting about 8 times, no hemetemisis, hemotyosis, melana, or change in bowel habits or color of stool. He normally has chronic diarrhea/ loose stools, no chnage in weight or night sweats. Review of Systems - Constitutional Constitutional: Present: as per HPI. Absent: anorexia, chills, fever(s), weight gain, weight loss - Cardiovascular Cardiovascular: Present: heart murmur. Absent: chest pain, palpitations, edema - Respiratory Respiratory: Absent: cough - Gastrointestinal Gastrointestinal: Present: nausea, vomiting. Absent: abdominal pain, change in bowel habits, change in stool character, coffee ground emesis, constipation, odynophagia PFS Patient Stated Medical History Cataracts Yes: REMOVED Congestive Heart Failure Yes Heart Murmur Yes Hypertension Yes Other Respiratory Yes breast bx 1990, hysterectomy 81' Family History: F- DM Mother- CVA - Social History Smoking status: Former smoker Substance use type: does not use Alcohol intake frequency: does not drink Housing: apartment Household members: none Medications Home Medications Medication Instructions Recorded Confirmed Type Furosemide 20 mg PO DAILY #90 07/19/16 11/04/16 History Gabapentin 100 mg PO HS #30 07/19/16 11/04/16 History Losartan Potassium 25 mg PO DAILY #90 07/19/16 11/04/16 History Bisoprolol [Zebeta] 2.5 mg PO DAILY 11/04/16 11/04/16 History Allergies Allergy/AdvReac Type Severity Reaction Status Date / Time clindamycin Allergy Unknown "DIGESTIVE Verified 11/04/16 20:42 SYSTEM PROBLEM" Penicillins Allergy Unknown DOES NOT Verified 11/04/16 20:42 REMEMBER Exam Vital Signs: Temperature 97.4 F 11/04/16 23:30 Pulse Rate 53 L 11/04/16 23:30 Respiratory Rate 18 11/04/16 23:30 Blood Pressure 200/90 H 11/04/16 23:30 Pulse Oximetry 95 11/04/16 23:30 Height/Weight/BMI: Height 1.57 m Weight 60 kg Body Mass Index 24.2 - Constitutional Present: no acute distress, average body habitus - Routine Neck Exam Present: supple - Routine Respiratory Exam Present: CTA bilaterally - Routine Cardiovascular Exam Present: RRR, murmur - Routine Abdominal Exam Present: soft, normoactive bowel sounds, tenderness. 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 DVT Prophylaxis: SCD's GI Prophylaxis: Protonix Resuscitation Status: Full Code Hospital Course Summary Disclaimer: The visit summary below is not to be considered part of the above Progress Note.
[2016-11-05] MEDS ORDERED: METOPROLOL 5mg/5ml INJECTION IVP PRN (00:58)
[2016-11-05] MEDS: PANTOPRAZOLE 40 MG INJECTION IVP SCH ×2 (01:22→08:31)
[2016-11-05] MEDS: HYDRALAZINE 20 MG/ML INJECTION IVP PRN (01:26)
[2016-11-05] MEDS: ONDANSETRON 4 MG/2 ML INJECTION IVP PRN ×2 (04:58→10:51)
[2016-11-05] MEDS: ACETAMINOPHEN 325 MG TABLET PO PRN (07:52)
--- NOTE | 2016-11-05 08:13 | CT Scan Report ---
Indication: pain nausea PROCEDURE: CT abdomen pelvis wo con: Encounter: Initial Comparison: CT angiogram of the aorta dated July 19, 2016 Technique: Axial CT images were performed through the abdomen and pelvis without intravenous contrast. Coronal and sagittal two-dimensional reformats. Automated Exposure Control and Iterative Reconstruction dose reducing techniques were utilized. Findings: The lung bases are clear. Multiple hepatic cysts. Gallbladder is unremarkable. Spleen, pancreas and adrenal glands are within normal limits. Kidneys are normal. No abdominal or pelvic adenopathy. Colonic diverticulosis. Bladder is normal. Uterus is absent. No evidence of a bowel obstruction. Bone windows show degenerative change and scoliosis in the lumbar spine. Scattered atherosclerotic plaque in the abdominal aorta with a large plaque near the origin of the celiac artery. Impression: No acute disease process seen in the abdomen or pelvis. There is a preliminary report by [facility]. .
[2016-11-05] MEDS: NS 1,000 ML IV SCH ×2 (10:04→22:24)
[2016-11-05] MEDS ORDERED: SCOPOLAMINE 1.5 MG PATCH TD SCH (11:45)
[2016-11-05] MEDS ORDERED: GADOBUTROL 10mMol/10ml INJECTION IVP ONE (18:39)
[2016-11-05] MEDS ORDERED: SALINE FLUSH 10ml SYRINGE ONE (18:39)
[2016-11-05] MEDS: GABAPENTIN 100 MG CAPSULE PO SCH (20:00)
[2016-11-05] MEDS ORDERED: FALL RISK - PHARMACY CONSULT MC PRN (23:23)
[2016-11-06] MEDS: MECLIZINE 25 MG TABLET PO PRN (02:24)
[2016-11-06] MEDS: NS 1,000 ML IV SCH ×3 (06:50→20:13)
[2016-11-06] MEDS: PANTOPRAZOLE 40 MG INJECTION IVP SCH (08:26)
--- NOTE | 2016-11-06 08:47 | Magnetic Resonance Report ---
Indication: vertigo, hearing loss PROCEDURE: MR brain/iac wo/w con: Encounter: Initial Comparisons: None Technique: Multiplanar, multisequence, MR imaging of the head with and without contrast was acquired. Special sequences were performed with attention to the internal auditory canals. Contrast: 6 mL of Gadavist FINDINGS: Exam is significantly limited by motion artifact, severely degrading numerous sequences. IACs: Cranial nerves VII and VIII appear normal. No mass lesions or abnormal enhancement seen in the internal auditory canals. The cochlea and semicircular canals appear normal. No mass in the cerebellopontine angles. Brain: Nonenhancing oval CSF signal intensity extra-axial lesion overlying the high left parietal lobe best seen on sagittal image #10 measuring 1.9 x 2.8 x 2.1 cm in size. This lesion does not enhance but does cause slight mass effect upon the underlying cortex. There is no reactive edema appreciated nearby however. The ventricles are of normal size, shape, and contour for the patient's age. There are small nonspecific punctate areas of T2-weighted and T2 FLAIR weighted signal abnormality in the deep frontoparietal white matter that most likely represent small vessel ischemic disease. This is of a degree that is considered to be normal for the patient's age. The brain stem, cerebellum, and cerebral hemispheres otherwise have a normal morphologic appearance as well as MR signal intensity on all pulse sequences. Following intravenous administration of contrast, no areas of abnormal enhancement are evident. There are no areas of restricted diffusion to suggest an acute infarct. There is no gross evidence of intracranial hemorrhage, or hydrocephalus. The visualized portions of the orbits, calvarium, paranasal sinuses, and skull base demonstrate no significant abnormality. IMPRESSION: Limited exam due to motion. No evidence of mass lesion or other abnormality in the internal auditory canals. 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 .
[2016-11-06] MEDS: LOSARTAN 50 MG TABLET PO SCH (10:54)
--- NOTE | 2016-11-06 14:54 | Progress Note ---
Subjective: Mrs. Mas continues to complain of decreased hearing in her left ear but today describes increased congestion in her head and discomfort in her right ear. She is not is dizzy and doesn't have as much vertigo today as she did yesterday. Her balance feels awful little bit but she is able to ambulate to and from the bathroom with nursing standing by to help with the IV pole. She doesn't think she needs nursing assistance. Nausea and vomiting have resolved and she was able to eat breakfast without difficulty this morning. She is voiding well and denied palpitations or pain. Objective Vital signs: Temperature 96.5 F L 11/06/16 07:49 Pulse Rate 56 L 11/06/16 07:49 Respiratory Rate 18 11/06/16 07:49 Blood Pressure 147/90 H 11/06/16 07:49 Pulse Oximetry 94 11/06/16 07:49 I/O 3222/1100 EXAM General-NAD, alert, fluent speech HEENT-conjunctiva clear, no tenderness over frontal or maxillary sinuses, right external auditory canal with minimal cerumen along the posterior wall and right tympanic membrane is hazy but not bulging or red; left external auditory canal is clear and landmarks on the left tympanic membrane are preserved Lungs-respirations nonlabored, good airflow, breath sounds clear Cardiac-regular cardiac rhythm, S1-S2 Abd-soft, nontender, bowel sounds present Ext-without edema Psych-fatigued - Height/Weight/BMI: Weight 61.5 kg Results - Labs CBC & Chem 7: 11/06/16 04:35 11/06/16 04:35 - Imaging and Cardiology MRI - head Status: image reviewed by me (no evidence of acute stroke or acoustic neuroma) Assessment and Plan (1) Vomiting Current visit: Yes Status: Acute (2) Vertigo Problem details: 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 PT/OT evaluations pending-if does well can potentially discharge home today. Will require ENT follow-up in the near future for reassessment of hearing loss symptoms. Blood pressures modestly elevated, losartan resumed. Sepsis Assessment - Evaluation Sepsis screening result: No Definite Risk Hospital Course Summary Disclaimer: The visit summary below is not to be considered part of the above Progress Note. Hospital Course: 11/05/16 Combination of symptoms compatible with Mnire's although patient has never had episodes in the past and does not have tinnitus. Given age will proceed with MRI to exclude acute vascular event or vestibular neuroma. Add scopolamine patch, meclizine as needed, continue fluids and antiemetics as needed. Prior interpretation suggested solid hepatic masses and question cancer however formal radiology interpretation is that hepatic lesions are fluid filled and cysts. Liver enzymes are normal and patient has no prior symptoms to suggest hepatic pathology. Discussed with Dr. Cardona, CT reviewed by myself, MRI ordered, laboratory data reviewed, prior records reviewed 11/06/16 Clinically improved, fluid behind right ear-add Sudafed. PT/OT evaluations pending-if does well can potentially discharge home today. Will require ENT follow-up in the near future for reassessment of hearing loss symptoms. Blood pressures modestly elevated, losartan resumed.
[2016-11-06] MEDS: SALINE FLUSH 10ml SYRINGE IVF PRN (15:33)
--- NOTE | 2016-11-06 16:26 | Discharge Instructions ---
Discharge Plan - Med Rec/Dispo Referrals/Follow Up: Armando Holbrook MD [Physician] - (Next Thursday in the office if possible) Rhonda Bravo MD [Family Provider] - 1 Week Debra Instructions: Acute Nausea and Vomiting (GEN), Vertigo (GEN) Prescriptions: New Meclizine [Antivert] 25 mg PO Q6H PRN #20 tab PRN Reason: Vertigo Scopolamine 1.5MG Patch [Transderm-Scop] 1 each TOP Q3D PRN #5 patch.td.3 PRN Reason: Vertigo Continue Losartan Potassium 25 mg PO DAILY #90 Furosemide 20 mg PO DAILY #90 Bisoprolol [Zebeta] 2.5 mg PO DAILY Gabapentin 100 mg PO HS #30
[2016-11-06] MEDS: HYDRALAZINE 20 MG/ML INJECTION IVP PRN (20:03)
[2016-11-06] MEDS: GABAPENTIN 100 MG CAPSULE PO SCH (20:09)
[2016-11-07] MEDS: SALINE FLUSH 10ml SYRINGE IVF PRN ×2 (00:35→09:14)
[2016-11-07] MEDS: PANTOPRAZOLE 40 MG INJECTION IVP SCH (09:13)
[2016-11-07] MEDS: LOSARTAN 50 MG TABLET PO SCH (09:15)
[2016-11-07] MEDS: ACETAMINOPHEN 325 MG TABLET PO PRN (09:16)
[2016-11-07 10:04] VITALS: BP 159/62; PULSE 57; RESP 20; TEMP 99.1; O2SAT 91
--- NOTE | 2016-11-07 13:44 | Discharge Instructions ---
Discharge Plan - Med Rec/Dispo Referrals/Follow Up: Rhonda Bravo MD [Family Provider] - 1 Week Armando Holbrook MD [Physician] - (Next Thursday in the office if possible .[phone] APPOITMENT ON 11/10 AT 1:30 .'S OFFICE IS AT [facility] [address].BRING ID AND INSURANCE TO APPOITMENT. ) Debra Instructions: Vertigo (GEN), Acute Nausea and Vomiting (GEN) Prescriptions: New Meclizine [Antivert] 25 mg PO Q6H PRN #20 tab PRN Reason: Vertigo Scopolamine 1.5MG Patch [Transderm-Scop] 1 each TOP Q3D PRN #5 patch.td.3 PRN Reason: Vertigo Ondansetron HCl [Zofran] 4 mg PO QID PRN #10 tab PRN Reason: Nausea &/Or Vomiting Continue Losartan Potassium 25 mg PO DAILY #90 Furosemide 20 mg PO DAILY #90 Bisoprolol [Zebeta] 2.5 mg PO DAILY Gabapentin 100 mg PO HS #30 Discharge Instructions/Outpatient Orders: Final Provider Discharge Instructions Location: Determined By Patient - Disposition 01 Discharged Home, Self-Care
--- NOTE | 2016-11-07 14:09 | Discharge Summary ---
<ValeriLulu D - Last Filed: 11/07/16 14:06> Discharge Information Date of admission: 11/05/16 14:37 Anticipated date of discharge: 11/07/16 Attending Physician: Lyla Moscoso MD Primary care physician: Rhonda Bravo MD - Laboratory Labs: 11/06/16 04:35 11/06/16 04:35 - Radiology Radiology: MRI brain with and without contrast: Limited exam due to motion. No mass lesion or other abnormality. Arachnoid cyst overlying the left parietal vertex. Abdomen and pelvis CT scan without contrast: No acute disease process. Multiple hepatic cysts. Scattered arthrosclerotic plaque in the abdominal aorta with a large plaque near the origin of the celiac artery. History of Present Illness HPI: Mrs. Mas is an 89-year-old female who developed intense nausea abruptly 4 days prior to admission with development of recurrent emesis 2 days prior to admission. She had loose stools 4 days ago but reports this is not uncommon. Vomiting was initially food substances progressing to just bilious emesis and then dry heaves. She describes at least 8 episodes of vomiting yesterday without hematemesis. There is been no change in bowel habits and she's had no melena. She additionally describes abrupt onset of vertigo with any movement 4 days ago with persistence of positional dizziness and she's experienced loss of hearing or at least significant reduction in hearing in her left ear. She denies any double vision or blurry vision and has had no sensory or focal motor weakness. She denies tinnitus, sinus headaches, or increased sinus congestion but has chronic rhinorrhea which is unchanged from baseline. She's had no fever or chills. Objective Vital signs: Temperature 99.1 F 11/07/16 08:00 Pulse Rate 57 L 11/07/16 08:00 Respiratory Rate 20 11/07/16 08:00 Blood Pressure 159/62 H 11/07/16 08:00 Pulse Oximetry 91 11/07/16 08:00 Height/Weight/BMI: Weight 63.2 kg - Constitutional Present: no acute distress, well nourished, well developed - Routine HEENT Exam ENT: Present: oropharynx clear - Routine Respiratory Exam Present: crackles (b/l bases) - Routine Cardiovascular Exam Present: RRR, S1, S2, murmur (2/6) - Routine Abdominal Exam Present: soft, normoactive bowel sounds, non distended. Absent: tenderness - Routine Extremities Exam Present: no edema - Routine Skin Exam Present: intact, dry, warm - Routine Neurological Exam Present: alert, oriented X3, CN II-XII intact, normal speech - Routine Psychiatric Exam Present: normal affect, normal thought process, cooperative Hospital Course This is a general summary of the patient's hospital course. For more details refer to the complete medical record. Hospital course: Mouna was given IV fluids, as well as a scopolamine patch, meclizine, and anti- antiemetics as needed. An MRI of her brain was obtained, which failed to show any acute abnormalities. Losartan was initially held, but was resumed on the second hospital day because of elevated blood pressures. Her symptoms slowly improved, but continued to have less of hearing in her left ear. Sudafed was added to help with fluid behind her right ear. Her nausea and vomiting subsided , and she was eating and drinking well by the day discharge. She relied less on holding onto structures to ambulate, and by discharge she was steady on her feet with FWW. She was evaluated by physical therapy on 2 occasions, both of which demonstrated safety for her to return home. She was discharged on 11/07/16 in stable condition. A follow-up appointment was set up with Dr. Holbrook on 11/10. New prescriptions include Zofran ODT, scopolamine patch, and meclizine. Continue the following home meds: Losartan 50 mg daily, Lasix 10 mg daily, by superolateral 2.5 mg daily, gabapentin 100 mg at night, lutein 20-40 mg daily. Recommend outpatient follow up with Dr. Bravo in 1 week. Time spent with patient: discharge greater than 30 minutes Discharge Plan - Med Rec/Dispo Referrals/Follow Up: Rhonda Bravo MD [Family Provider] - 1 Week Armando Holbrook MD [Physician] - (Next Thursday in the office if possible .[phone] APPOITMENT ON 11/10 AT 1:30 .'S OFFICE IS AT [facility] [address].BRING ID AND INSURANCE TO APPOITMENT. ) Juan Auvaminah Instructions: Vertigo (GEN), Acute Nausea and Vomiting (GEN) Prescriptions: New Meclizine [Antivert] 25 mg PO Q6H PRN #20 tab PRN Reason: Vertigo Scopolamine 1.5MG Patch [Transderm-Scop] 1 each TOP Q3D PRN #5 patch.td.3 PRN Reason: Vertigo Ondansetron HCl [Zofran] 4 mg PO QID PRN #10 tab PRN Reason: Nausea &/Or Vomiting Furosemide [Lasix] 0.5 tab PO DAILY #20 tab Continue Bisoprolol [Zebeta] 2.5 mg PO DAILY Gabapentin 100 mg PO HS #30 Changed Losartan Potassium 50 mg PO DAILY #90 Discontinued Furosemide 20 mg PO DAILY #90 Discharge Instructions/Outpatient Orders: Final Provider Discharge Instructions Location: Determined By Patient - Disposition 01 Discharged Home, Self-Care <Lyla Moscoso - Last Filed: 11/07/16 20:32> Discharge Information Date of admission: 11/05/16 14:37 - Discharge Diagnosis (1) Vertigo Discharge Diagnosis: Vertigo, probable Mnire's disease - Laboratory Labs: 11/06/16 04:35 11/06/16 04:35 Objective Vital signs: Temperature 99.1 F 11/07/16 08:00 Pulse Rate 57 L 11/07/16 08:00 Respiratory Rate 20 11/07/16 08:00 Blood Pressure 159/62 H 11/07/16 08:00 Pulse Oximetry 91 11/07/16 08:00 Height/Weight/BMI: Weight 63.2 kg Hospital Course This is a general summary of the patient's hospital course. For more details refer to the complete medical record. Hospital course: Assessment: Intractable nausea/vomiting Vertigo Left hearing loss Probable Mnire's Hypertension, controlled I have independently evaluated and examined this patient. I reviewed the chart, the patient's history, and the [employer]PA's documented findings as above. We discussed and formulated the assessment and plan as above with additions as below: Mrs. Mas had minor nausea and minor headache on the date of discharge but was ambulating safely with a front-wheeled walker. She still had minor balance disturbance and gait unsteadiness such that walker was felt necessary for safety on discharge. Home health was coordinated to continue outpatient therapy with transition. Left hearing loss persists. Evaluation as described above-please note that the MRI specifically did not reveal any clear evidence of pathology in the internal auditory canals or evidence of acoustic neuroma. Discharge the patient was alert, speech is fluent, and extraocular muscles are full. Eye and head movements do not trigger distress as they did 2 days ago. Abdomen is soft with bowel sounds present. Discharge plans were reviewed with Dr. Bravo following reassessment by physical therapy and rehabilitation. ENT evaluation on Thursday.
[2016-11-07] MEDS: MECLIZINE 25 MG TABLET PO PRN (14:35)
== END 2016-11-07 14:35 | disposition home health service (06) | DRG 392 ==
LOC: MED 20:03 → ED 20:03 → MED 23:15
PROVIDERS: ADMIT Internal Medicine; ATTEND Internal Medicine